=== PATIENT | male | born 1945 | race Caucasian/White ===

== ENCOUNTER 2023-02-08 21:08 | Emergency (ER) | payer OTHER ==
[~2023-02-08] VITALS: Ht 175.3 cm; Wt 108.9 kg
[2023-02-08 22:01] LABS: Hematocrit 38.7 % (37.0-53.0); Hemoglobin 12.4 g/dL (13.5-17.5); Mean Corpuscular HGB 31.6 pg (26.0-34.0); Mean Corpuscular Volume 99 fL (80-100); Mean Platelet Volume 10.6 fL (9.1-12.4); Platelet Count 143 K/mm3 (150-400); RDW Coefficient Variation 13.7 % (11.7-14.2); RDW Standard Deviation 50.1 fL (35.1-46.3); Red Blood Cell Count 3.92 M/mm3 (4.30-5.90); White Blood Cell Count 7.99 K/mm3 (4.00-11.30)
[2023-02-08 22:14] LABS: Source, Urine Voided
[2023-02-08 22:23] LABS: Albumin, Blood 3.5 g/dL (3.4-5.0); Bilirubin, Total 0.2 mg/dL (0.1-1.0); Bun/Creatinine Ratio 26.9 (12.0-20.0); Creatinine, Blood 1.04 mg/dL (0.60-1.20); Globulin, Blood 3.4 g/dL (2.2-4.0); Total Protein, Blood 6.9 g/dL (6.4-8.2)
[2023-02-08 22:27] LABS: BASOPHILS ABSOLUTE MAN 0.15 K/mm3 (0.00-0.23); BASOPHILS PERCENT MAN 2 % (0-2); EOSINOPHILS PERCENT MAN 0 % (0-6); LYMPHOCYTES ABSOLUTE MAN 1.19 K/mm3 (0.84-5.20); LYMPHOCYTES PERCENT MAN 15 % (21-46); METAMYELOCYTE ABSOLUTE MAN 0.15 K/mm3 (0.00-0.00); METAMYELOCYTE PERCENT MAN 2 % (0-0); MONOCYTES ABSOLUTE MAN 1.43 K/mm3 (0.16-1.47); MONOCYTES PERCENT MAN 18 % (4-13); MYELOCYTE ABSOLUTE MAN 0.23 K/mm3 (0.00-0.00); MYELOCYTE PERCENT MAN 3 % (0-0); NEUTROPHILS ABSOLUTE MAN 4.79 K/mm3 (1.96-9.15); SEG NEUTROPHILS PERCENT MAN 60 % (41-73); TOTAL CELLS COUNTED 100
[2023-02-08 22:31] LABS: Bilirubin, Urine Neg (Neg); Blood, Urine Neg (Neg); Glucose Qualitative, Urine Neg (Neg); Ketones, Urine Neg (Neg); Leukocyte Esterase, Urine Neg (Neg); Nitrite, Urine Neg (Neg); Protein, Urine Neg (Neg); Urobilinogen, Urine NORM (Normal)
[2023-02-08 23:05] LABS: Appearance, Urine Clear (Clear); Color, Urine Pale Yellow (P-Yellow)
[2023-02-08 23:44] VITALS: BP 117/86
== END 2023-02-09 00:42 | disposition home or self-care (01) ==
LOC: ER 21:08
PROVIDERS: Student in an Organized Health Care Education/Training Program
DX: M62.81 Muscle weakness (generalized) (principal)
CPT/HCPCS: 80053; 81003; 85025; 93005; 93010; 96360; 99284-25; J7030

== ENCOUNTER 2023-02-14 06:30 | Emergency (ER) | payer OTHER ==
[~2023-02-14] VITALS: Ht 175.3 cm; Wt 108.9 kg
[2023-02-14 07:03] LABS: Hematocrit 43.4 % (37.0-53.0); Hemoglobin 13.8 g/dL (13.5-17.5); Mean Corpuscular HGB 31.6 pg (26.0-34.0); Mean Corpuscular HGB Conc 31.8 g/dL (31.5-36.5); Mean Corpuscular Volume 99 fL (80-100); Mean Platelet Volume 10.7 fL (9.1-12.4); Platelet Count 135 K/mm3 (150-400); RDW Coefficient Variation 13.5 % (11.7-14.2); RDW Standard Deviation 49.8 fL (35.1-46.3); Red Blood Cell Count 4.37 M/mm3 (4.30-5.90); White Blood Cell Count 10.43 K/mm3 (4.00-11.30)
[2023-02-14 07:25] LABS: Albumin, Blood 3.8 g/dL (3.4-5.0); Albumin/Globulin Ratio 1.1 (0.8-1.8); Bilirubin, Total 0.5 mg/dL (0.1-1.0); Bun/Creatinine Ratio 30.1 (12.0-20.0); Calcium, Blood 9.2 mg/dL (8.5-10.1); Creatinine, Blood 1.03 mg/dL (0.60-1.20); Globulin, Blood 3.5 g/dL (2.2-4.0); Magnesium, Blood 2.4 mg/dL (1.6-2.4); Potassium, Blood 4.2 mmol/L (3.5-5.5); Total Protein, Blood 7.3 g/dL (6.4-8.2)
[2023-02-14 07:28] LABS: BAND PERCENT MAN 5 % (0-8); BASOPHILS PERCENT MAN 0 % (0-2); EOSINOPHILS PERCENT MAN 2 % (0-6); LYMPHOCYTES ABSOLUTE MAN 2.29 K/mm3 (0.84-5.20); LYMPHOCYTES PERCENT MAN 22 % (21-46); METAMYELOCYTE PERCENT MAN 2 % (0-0); MONOCYTES ABSOLUTE MAN 1.35 K/mm3 (0.16-1.47); MONOCYTES PERCENT MAN 13 % (4-13); MYELOCYTE ABSOLUTE MAN 0.31 K/mm3 (0.00-0.00); MYELOCYTE PERCENT MAN 3 % (0-0); NEUTROPHILS ABSOLUTE MAN 6.04 K/mm3 (1.96-9.15); SEG NEUTROPHILS PERCENT MAN 53 % (41-73); TOTAL CELLS COUNTED 100
[2023-02-14 11:00] VITALS: BP 130/75
== END 2023-02-14 11:44 | disposition home or self-care (01) ==
LOC: ER 06:30
PROVIDERS: Emergency Medicine
DX: R19.7 Diarrhea, unspecified (principal); E86.0 Dehydration; J44.9 Chronic obstructive pulmonary disease, unspecified; I10 Essential (primary) hypertension
CPT/HCPCS: 80053; 83735; 85025; 96361; 96374; 99284-25; A9270; J2405; J7120

== ENCOUNTER 2023-02-21 04:10 | Emergency (ER) | payer OTHER ==
[~2023-02-21] VITALS: Ht 175.3 cm; Wt 108.9 kg
[2023-02-21] MEDS ORDERED: ALBU90OI INH (04:24)
[2023-02-21] MEDS ORDERED: ASMANEX INH (04:24)
[2023-02-21] MEDS ORDERED: DILT60 (04:25)
[2023-02-21] MEDS ORDERED: TAMS.4ER PO (04:25)
[2023-02-21] MEDS ORDERED: FURO20 PO (04:25)
[2023-02-21 07:12] VITALS: BP 138/70
== END 2023-02-21 09:02 | disposition home or self-care (01) ==
LOC: ER 04:10
DX: S86.911A Strain of unspecified muscle(s) and tendon(s) at lower leg level, right leg, initial encounter (principal); R60.0 Localized edema; I10 Essential (primary) hypertension; J44.9 Chronic obstructive pulmonary disease, unspecified; Z79.899 Other long term (current) drug therapy; W19.XXXA Unspecified fall, initial encounter
CPT/HCPCS: 73590; 93971

== ENCOUNTER 2023-03-09 08:54 | Emergency (ER) | payer OTHER ==
[~2023-03-09] VITALS: Ht 177.8 cm; Wt 108.9 kg
[~2023-03-09 08:54] MED LIST: ALBU90OI INH; ASMANEX INH; DILT60; FURO20 PO; TAMS.4ER PO
[2023-03-09 10:41] LABS: BASOPHILS ABSOLUTE AUTO 0.01 K/mm3 (0.00-0.23); BASOPHILS PERCENT AUTO 0 % (0-2); EOSINOPHILS ABSOLUTE AUTO 0.16 K/mm3 (0.00-0.68); EOSINOPHILS PERCENT AUTO 2 % (0-6); Hematocrit 38.7 % (37.0-53.0); Hemoglobin 12.5 g/dL (13.5-17.5); IMMATURE GRAN PERCENT AUTO 3 % (0-1); LYMPHOCYTES ABSOLUTE AUTO 2.28 K/mm3 (0.84-5.20); LYMPHOCYTES PERCENT AUTO 35 % (21-46); MONOCYTES PERCENT AUTO 38 % (4-13); Mean Corpuscular HGB 32.1 pg (26.0-34.0); Mean Corpuscular HGB Conc 32.3 g/dL (31.5-36.5); Mean Corpuscular Volume 100 fL (80-100); Mean Platelet Volume 11.3 fL (9.1-12.4); NEUTROPHILS ABSOLUTE AUTO 1.42 K/mm3 (1.96-9.15); NEUTROPHILS PERCENT AUTO 22 % (41-73); Platelet Count 122 K/mm3 (150-400); RDW Coefficient Variation 13.2 % (11.7-14.2); RDW Standard Deviation 47.6 fL (35.1-46.3); Red Blood Cell Count 3.89 M/mm3 (4.30-5.90); White Blood Cell Count 6.57 K/mm3 (4.00-11.30)
[2023-03-09 10:45] LABS: Albumin, Blood 3.3 g/dL (3.4-5.0); Bilirubin, Total 0.4 mg/dL (0.1-1.0); Bun/Creatinine Ratio 27.9 (12.0-20.0); Calcium, Blood 8.5 mg/dL (8.5-10.1); Creatinine, Blood 0.86 mg/dL (0.60-1.20); Globulin, Blood 3.4 g/dL (2.2-4.0); Potassium, Blood 4.4 mmol/L (3.5-5.5); Total Protein, Blood 6.7 g/dL (6.4-8.2)
[2023-03-09 12:30] VITALS: BP 113/93
== END 2023-03-09 12:44 | disposition home or self-care (01) ==
LOC: ER 08:54
PROVIDERS: Emergency Medicine
DX: R53.1 Weakness (principal); R53.81 Other malaise; Z79.899 Other long term (current) drug therapy
CPT/HCPCS: 71046; 80053; 85025; 99285-25

== ENCOUNTER 2023-08-23 20:18 | Inpatient (IN) | payer OTHER ==
[~2023-08-23] VITALS: Ht 175.3 cm; Wt 113.4 kg
[~2023-08-23 20:18] MED LIST changes: -ASMANEX INH; +ASMANEX220 M14 INH; -FURO20 PO; +FURO40 PO; +NAPR500ERA PO
[2023-08-23] MEDS ORDERED: ATOR40TA PO (20:32)
[2023-08-23] MEDS ORDERED: LOSA50 PO (20:32)
[2023-08-23] MEDS ORDERED: Aspir 8181 MG PO (20:32)
[2023-08-23] MEDS ORDERED: FAMO20 PO (20:32)
[2023-08-23 20:48] LABS: Base Excess Venous -2.2 mmol/L; Bicarbonate Venous 22.1 mmol/L (24.0-30.0); PCO2 Venous 36.4 mmHg (38-42)
[2023-08-23 21:00] LABS: Hematocrit 41.5 % (37.0-53.0); Hemoglobin 13.5 g/dL (13.5-17.5); Mean Corpuscular HGB 31.6 pg (26.0-34.0); Mean Corpuscular HGB Conc 32.5 g/dL (31.5-36.5); Mean Corpuscular Volume 97 fL (80-100); Mean Platelet Volume 10.6 fL (9.1-12.4); Platelet Count 149 K/mm3 (150-400); RDW Coefficient Variation 13.4 % (11.7-14.2); RDW Standard Deviation 47.6 fL (35.1-46.3); Red Blood Cell Count 4.27 M/mm3 (4.30-5.90); White Blood Cell Count 16.93 K/mm3 (4.00-11.30)
[2023-08-23 21:19] LABS: Albumin, Blood 3.7 g/dL (3.4-5.0); Albumin/Globulin Ratio 1.1 (0.8-1.8); Bilirubin, Total 0.4 mg/dL (0.1-1.0); Bun/Creatinine Ratio 22.1 (12.0-20.0); Calcium, Blood 9.7 mg/dL (8.5-10.1); Creatinine, Blood 1.04 mg/dL (0.60-1.20); Globulin, Blood 3.5 g/dL (2.2-4.0); Potassium, Blood 4.1 mmol/L (3.5-5.5); Total Protein, Blood 7.2 g/dL (6.4-8.2)
[2023-08-23 21:25] LABS: BASOPHILS PERCENT MAN 0 % (0-2); EOSINOPHILS PERCENT MAN 0 % (0-6); LYMPHOCYTES ABSOLUTE MAN 1.52 K/mm3 (0.84-5.20); LYMPHOCYTES PERCENT MAN 9 % (21-46); MONOCYTES PERCENT MAN 26 % (4-13); SEG NEUTROPHILS PERCENT MAN 65 % (41-73); TOTAL CELLS COUNTED 100
[2023-08-23 21:29] LABS: Influenza A, PCR NEGATIVE (NEGATIVE); Influenza B, PCR NEGATIVE (NEGATIVE); Resp Syncytial Virus, PCR NEGATIVE (NEGATIVE); SARS-Cov-2 (COVID-19) PCR, MMC NEGATIVE (NEGATIVE)
[2023-08-23 21:59] LABS: Source, Urine Clean Catch
[2023-08-23 22:13] LABS: Appearance, Urine Clear (Clear); Bilirubin, Urine Neg (Neg); Blood, Urine 1+ (Neg); Color, Urine Yellow (P-Yellow); Glucose Qualitative, Urine Neg (Neg); Ketones, Urine Neg (Neg); Leukocyte Esterase, Urine Neg (Neg); Nitrite, Urine Neg (Neg); Protein, Urine 1+ (Neg); Urobilinogen, Urine NORM (Normal)
[2023-08-23 22:27] LABS: Bacteria Few /hpf; Mucus Light (0-Heavy); Red Blood Cells, Urine 0-2 /hpf (0-2); Squamous Epithelial Cells Mod /hpf (Few); White Blood Cells, Urine 0-2 /hpf (0-5)
[2023-08-23 23:49] LABS: Magnesium, Blood 2.2 mg/dL (1.6-2.4); Phosphorus, Blood 2.1 mg/dL (2.5-4.9); Thyroid Stimulating Hormone 0.576 uIU/mL (0.360-4.800)
[2023-08-24 05:46] VITALS: BP 103/77
[2023-08-24 06:19] LABS: BASOPHILS ABSOLUTE AUTO 0.02 K/mm3 (0.00-0.23); BASOPHILS PERCENT AUTO 0 % (0-2); EOSINOPHILS PERCENT AUTO 0 % (0-6); Hemoglobin 11.8 g/dL (13.5-17.5); IMMATURE GRAN ABSOLUTE AUTO 0.52 K/mm3 (0.00-0.10); IMMATURE GRAN PERCENT AUTO 3 % (0-1); LYMPHOCYTES ABSOLUTE AUTO 2.79 K/mm3 (0.84-5.20); LYMPHOCYTES PERCENT AUTO 16 % (21-46); MONOCYTES ABSOLUTE AUTO 4.91 K/mm3 (0.16-1.47); MONOCYTES PERCENT AUTO 28 % (4-13); Mean Corpuscular HGB 31.1 pg (26.0-34.0); Mean Corpuscular HGB Conc 31.9 g/dL (31.5-36.5); Mean Corpuscular Volume 97 fL (80-100); Mean Platelet Volume 10.5 fL (9.1-12.4); NEUTROPHILS ABSOLUTE AUTO 9.49 K/mm3 (1.96-9.15); NEUTROPHILS PERCENT AUTO 54 % (41-73); Platelet Count 143 K/mm3 (150-400); RDW Coefficient Variation 13.6 % (11.7-14.2); RDW Standard Deviation 48.6 fL (35.1-46.3); White Blood Cell Count 17.73 K/mm3 (4.00-11.30)
--- NOTE | 2023-08-24 06:21 | NUR ---
0540 PT ARRIVED TO ROOM FROM ER VIA GURNEY IN STABLE CONDITION. PT REPORTS ALL OVER PAIN THAT ACHES OF 3/10, STATES HE HAS ARTHRITIS AND USUALLY TAKES TYLENOL. WILL ADMINISTER TYLENOL AND EVAL FOR EFFECT. SOB THAT INCREASES WITH EXERTION, ON 3L NC AT 92%, THIS IS HIS BASELINE. 2-3+ PITTING EDEMA IN LE'S. EXP WHEEZE AND DIMINISHED THROUGHOUT IN LUNGS. NO SKIN ISSUES UPON SKIN CHECK OTHER THAN EDEMA. NO OTHER APPARENT SIGNS OF DISTRESS. CALL LIGHT IS IN REACH. BED ALARM IS ON.
--- NOTE | 2023-08-24 06:24 | NUR ---
PT IS AAO X 4, ON 3L AT 92%. SOB THAT INCREASES WITH EXERTION. 2-3+ PITTING EDEMA IN LE'S. ARTHRITIS PAIN, GOT TYLENOL. PT REPORTED NAUSEA BUT ALSO REPORTED HE WAS HUNGRY. GAVE PT OJ AND YOGURT.
--- NOTE | 2023-08-24 06:26 | NUR ---
PT LYING IN BED EATING YOGURT AND DRINKING OJ, WILL CONT. TO MONITOR FOR NAUSEA AND EVAL FOR PAIN. PT REQUESTED AND RECIEVED AN EXTRA BLANKET. NO OTHER APPARENT SIGNS OF DISTRESS. CALL LIGHT IS IN REACH. BED ALARM IS ON. NO OTHER CHANGES SINCE ARRIVAL TO ROOM.
[2023-08-24 06:45] LABS: Albumin, Blood 3.1 g/dL (3.4-5.0); Bilirubin, Total 0.5 mg/dL (0.1-1.0); Bun/Creatinine Ratio 20.4 (12.0-20.0); Creatinine, Blood 1.08 mg/dL (0.60-1.20); Globulin, Blood 3.2 g/dL (2.2-4.0); Potassium, Blood 4.2 mmol/L (3.5-5.5); Total Protein, Blood 6.3 g/dL (6.4-8.2)
[2023-08-24 07:23] VITALS: BP 128/58
[2023-08-24 16:00] VITALS: BP 126/79
--- NOTE | 2023-08-24 16:19 | NUR ---
PT IS A/OX4, PLEASANT AND COOPERATIVE. THE PT IS UP WITH 1 PERSON ASSIST. THE THE BSC. THE PT APPEARS TO BE BREATHING EASILY AT REST AND REPORTS THAT HE FEELS HE IS BREATHING BETTER SINCE ADMISSION. PT WAS MEDICATED FOR CHRONIC PAIN WITH TYLENOL X1 SO FAR THIS SHIFT. CLARY CONNORS ON. CALL LIGHT IN REACH. BED IN THE LOW POSITION
[2023-08-24 21:13] VITALS: BP 117/74
[2023-08-25] MEDS ORDERED: ACET500 PO (00:25)
[2023-08-25] MEDS ORDERED: ALEN70 PO (00:25)
[2023-08-25] MEDS ORDERED: Bisoprolol Fumar5 MG PO (00:28)
[2023-08-25] MEDS ORDERED: THERA-D2000 UNIT PO (00:29)
[2023-08-25] MEDS ORDERED: Calcium Carbon500 MG PO (00:29)
[2023-08-25] MEDS ORDERED: OMEP20ER PO (00:32)
[2023-08-25] MEDS ORDERED: ARTIFICIAL TEA1 EAC1 BOTHEYES (00:32)
[2023-08-25] MEDS ORDERED: STIOLTO RESPIMAT4 G1 INH (00:34)
[2023-08-25] MEDS ORDERED: PSYLLIUM PO (00:34)
[2023-08-25 03:13] VITALS: BP 105/60
[2023-08-25 05:25] LABS: Hematocrit 34.8 % (37.0-53.0); Hemoglobin 11.1 g/dL (13.5-17.5); Mean Corpuscular HGB 31.4 pg (26.0-34.0); Mean Corpuscular HGB Conc 31.9 g/dL (31.5-36.5); Mean Corpuscular Volume 99 fL (80-100); Mean Platelet Volume 10.9 fL (9.1-12.4); Platelet Count 122 K/mm3 (150-400); RDW Coefficient Variation 13.7 % (11.7-14.2); RDW Standard Deviation 49.1 fL (35.1-46.3); Red Blood Cell Count 3.53 M/mm3 (4.30-5.90); White Blood Cell Count 7.88 K/mm3 (4.00-11.30)
[2023-08-25 05:58] LABS: Anion Gap 7 mmol/L (6-16); Blood Urea Nitrogen 18 mg/dL (8-24); Bun/Creatinine Ratio 20.1 (12.0-20.0); CO2, Blood 24 mmol/L (21-32); Calcium, Blood 8.4 mg/dL (8.5-10.1); Chloride, Blood 112 mmol/L (98-108); Glomerular Filtration Rate 86 (60-); Glucose, Blood 102 mg/dL (70-99); Phosphorus, Blood 3.6 mg/dL (2.5-4.9); Potassium, Blood 3.9 mmol/L (3.5-5.5); Sodium, Blood 143 mmol/L (136-145)
--- NOTE | 2023-08-25 06:28 | NUR ---
SHIFT SUMMARY NO ACUTE CHANGES TO REPORT OVERNIGHT, PT HAS RESTED T/O THE NIGHT. PT REPORTS PAIN IN JOINTS RELATED TO HIS ARTHRITIS, MEDICATED PER EMAR. VITALS STABLE, PT MAINTAINING O2 SATS WNL ON 3L 02. VITALS ARE STABLE. PLAN OF CARE REMAINS UNCHANGED. BED IN LOWEST POSITION, CALL LIGHT WITHIN REACH.
[2023-08-25 08:07] VITALS: BP 99/64
[2023-08-25 16:58] VITALS: BP 117/76
--- NOTE | 2023-08-25 17:55 | NUR ---
SHIFT SUMMARY: JOSEPH IS A&OX4. VSS, NO ACUTE EVENTS THIS SHIFT. HE IS TOLERATING PO INTAKE WELL, MAINTAINING SATS ON 3O VIA NC (CONSISTENT WITH HIS BASELINE OXYGEN USAGE), AND IS ABLE TO MAKE HIS NEEDS KNOWN. HE IS A ONE TO TWO PERSON ASSIST TO THE BEDSIDE CHAIR AND BEDSIDE COMMODE. IVs TO BILATERAL ARMS PATENT. PT REPORTS URINATING WITHOUT DIFFICULTY, HAS BEEN USING EITHER THE URINAL OR THE BEDSIDE COMMODE. HE REPORTS ADEQUATE PAIN CONTROL WITH MEDICATIONS PER NOV. HE IS LYING IN BED WITH THE CALL LIGHT IN REACH. WCTM UNTIL REPORT IS GIVEN TO GLUE MACHINE OPERATOR RN.
[2023-08-25 19:32] VITALS: BP 119/71
[2023-08-26 03:18] VITALS: BP 122/78
[2023-08-26 06:21] LABS: Albumin, Blood 3.3 g/dL (3.4-5.0); Anion Gap 4 mmol/L (6-16); Blood Urea Nitrogen 17 mg/dL (8-24); Bun/Creatinine Ratio 20.9 (12.0-20.0); CO2, Blood 26 mmol/L (21-32); Calcium, Blood 8.8 mg/dL (8.5-10.1); Chloride, Blood 112 mmol/L (98-108); Creatinine, Blood 0.81 mg/dL (0.60-1.20); Glomerular Filtration Rate 89 (60-); Glucose, Blood 106 mg/dL (70-99); Phosphorus, Blood 3.1 mg/dL (2.5-4.9); Potassium, Blood 4.1 mmol/L (3.5-5.5); Sodium, Blood 142 mmol/L (136-145)
--- NOTE | 2023-08-26 07:10 | NUR ---
Shift Summary Pt remains on 3L NC, VSS. He states he is not feeling well this AM after not sleeping well last night. Pt did c/o of leg pain, we raised his legs on pillows and medicated per EMAR. Pt wasn't sure if the pillows helped or not and had them removed. PT AOx4, on bedrest, voiding in urinal.
[2023-08-26 07:37] VITALS: BP 142/92
[2023-08-26 15:29] VITALS: BP 102/68
--- NOTE | 2023-08-26 18:51 | NUR ---
SHIFT SUMMARY: JOSEPH IS A&OX4. VSS, NO ACUTE EVENTS THIS SHIFT. HE IS TOLERATING PO INTAKE WELL, STATES THAT THE LIDOCAINE PATCHES ON HIS KNEES DID NOT IMPROVE HIS SYMPTOMS AND REQUESTED THAT THEY BE REMOVED. IVs TO BILAERAL FOREARMS PATENT. HE IS URINATING WITHOUT DIFFICULTY USING THE URINALS. CLARY HOSE IN PLACE. MAINTAINING SATS ON 3L VIA NC. HE IS LYING IN BED WITH THE CALL LIGHT IN REACH. WCTM UNTIL REPORT IS GIVEN TO COMPUTER INSTRUCTOR RN.
[2023-08-26 19:45] VITALS: BP 111/62
[2023-08-27 03:10] VITALS: BP 104/63
[2023-08-27 05:41] LABS: Albumin, Blood 3.2 g/dL (3.4-5.0); Anion Gap 5 mmol/L (6-16); Blood Urea Nitrogen 22 mg/dL (8-24); Bun/Creatinine Ratio 25.2 (12.0-20.0); CO2, Blood 26 mmol/L (21-32); Calcium, Blood 8.6 mg/dL (8.5-10.1); Chloride, Blood 109 mmol/L (98-108); Creatinine, Blood 0.87 mg/dL (0.60-1.20); Glomerular Filtration Rate 87 (60-); Glucose, Blood 99 mg/dL (70-99); Phosphorus, Blood 3.8 mg/dL (2.5-4.9); Potassium, Blood 4.5 mmol/L (3.5-5.5); Sodium, Blood 140 mmol/L (136-145)
--- NOTE | 2023-08-27 06:47 | NUR ---
Shift Summary Pt having good PO intake but has not had a bowel movement since 08/24. Given bowel care last night including miralax. Pt states he is passing gas and feeling rumbling but unable to have a BM. Pt having small frequent voids in the urinal. I did a bladder scan 30 minutes after one void and there was 143 mL. Lower extremities still painful, medicated per emar and pt slept well t/o most of the night. Pt AOx4, currently on bedrest.
[2023-08-27 07:30] VITALS: BP 104/62
[2023-08-27] MEDS ORDERED: ASPI81CH PO (11:55)
[2023-08-27] MEDS ORDERED: AZIT500 PO (11:56)
[2023-08-27] MEDS ORDERED: GUAI600T33 PO (11:58)
[2023-08-27] MEDS ORDERED: LIDO700A20 TOP (12:00)
[2023-08-27] MEDS ORDERED: TRAM50 PO (12:01)
[2023-08-27] MEDS ORDERED: MIRALAX17 GM PO (12:01)
[2023-08-27] MEDS ORDERED: MELATONIN5 M1 PO (12:01)
[2023-08-27] MEDS ORDERED: CEFU500T30 PO (12:02)
[2023-08-27] MEDS ORDERED: VISBIOME 112.51 EACH PO (12:02)
--- NOTE | 2023-08-27 13:51 | NUR ---
PT DISCHARGED THE PT VERBALIZED UNDERSTANDING OF THE DC INSTRUCTIONS. THE PTS ANTI BIOTIC PRESCRIPTIONS WERE FAXED TO [facility] HE REQUESTED. [facility] PT WAS TRANSFERED BY WHEELCHAIR ACCOMPANIED BY HIS DAUGHTER. PT WAS OFFERED OXYGEN TO WEAR TO THE CAR, HE REFUSED.
== END 2023-08-27 13:05 | disposition home health service (06) | DRG 871 ==
LOC: ER 20:18 → MEDS 20:19 → ENPENDDIS 08-27 11:59 → MEDS 08-27 13:05
PROVIDERS: Emergency Medicine; Family Medicine; Internal Medicine; ADMIT Student in an Organized Health Care Education/Training Program
DX: A41.9 Sepsis, unspecified organism (principal); I50.33 Acute on chronic diastolic (congestive) heart failure; J18.9 Pneumonia, unspecified organism; J96.11 Chronic respiratory failure with hypoxia; Z66 Do not resuscitate; Z11.52 Encounter for screening for COVID-19; E88.09 Other disorders of plasma-protein metabolism, not elsewhere classified; J43.9 Emphysema, unspecified; K59.00 Constipation, unspecified; M17.0 Bilateral primary osteoarthritis of knee; E83.39 Other disorders of phosphorus metabolism; D69.6 Thrombocytopenia, unspecified; N40.0 Benign prostatic hyperplasia without lower urinary tract symptoms; I11.0 Hypertensive heart disease with heart failure; R16.1 Splenomegaly, not elsewhere classified; N28.1 Cyst of kidney, acquired; K44.9 Diaphragmatic hernia without obstruction or gangrene; R91.1 Solitary pulmonary nodule; Z99.81 Dependence on supplemental oxygen; Z87.891 Personal history of nicotine dependence; Z79.82 Long term (current) use of aspirin
CPT/HCPCS: 0241U; 36415; 71045; 71260; 80053; 80069; 81001; 82803; 83605; 83735; 83880; 84100; 84145; 84443; 84484; 85025; 85027; 85379; 87040; 93005; 93010; 93306; 94640; 94664; 94760; 96365; 96367; 96375; 97110; 97162; 97165; 97530; 97535; 99285-25; A9270; G0378; J0456; J0696; J1650; J1940; J7050; P9047; Q9967

== ENCOUNTER 2024-06-18 10:38 | Emergency (ER) | payer OTHER ==
[~2024-06-18] VITALS: Ht 160 cm; Wt 113.4 kg
[~2024-06-18 10:38] MED LIST changes: +ACET500 PO; +ALEN70 PO; +ARTIFICIAL TEA1 EAC1 BOTHEYES; +ASPI81CH PO; +ATOR40TA PO; +AZIT500 PO; +Aspir 8181 MG PO; +Bisoprolol Fumar5 MG PO; +CEFU500T30 PO; +Calcium Carbon500 MG PO; +FAMO20 PO; +GUAI600T33 PO; +LIDO700A20 TOP; +LOSA50 PO; +MELATONIN5 M1 PO; +MIRALAX17 GM PO; +OMEP20ER PO; +PSYLLIUM PO; +STIOLTO RESPIMAT4 G1 INH; +THERA-D2000 UNIT PO; +TRAM50 PO; +VISBIOME 112.51 EACH PO
[2024-06-18] MEDS ORDERED: Ipratropium/Albuterol SulF 2.5-0.5MG/3 ML Amp INH ONE (11:15)
[2024-06-18] MEDS ORDERED: Metoclopramide HCl 5MG / ML 2ML Vial IV ONE (11:15)
[2024-06-18] MEDS ORDERED: NS 1,000 ML IV SCH (11:15)
[2024-06-18 11:21] LABS: BASOPHILS ABSOLUTE AUTO 0.02 K/mm3 (0.00-0.23); BASOPHILS PERCENT AUTO 0 % (0-2); EOSINOPHILS ABSOLUTE AUTO 0.06 K/mm3 (0.00-0.68); EOSINOPHILS PERCENT AUTO 1 % (0-6); Hematocrit 36.1 % (37.0-53.0); Hemoglobin 11.6 g/dL (13.5-17.5); IMMATURE GRAN ABSOLUTE AUTO 0.33 K/mm3 (0.00-0.10); IMMATURE GRAN PERCENT AUTO 4 % (0-1); LYMPHOCYTES ABSOLUTE AUTO 3.04 K/mm3 (0.84-5.20); LYMPHOCYTES PERCENT AUTO 37 % (21-46); MONOCYTES ABSOLUTE AUTO 2.48 K/mm3 (0.16-1.47); MONOCYTES PERCENT AUTO 30 % (4-13); Mean Corpuscular HGB Conc 32.1 g/dL (31.5-36.5); Mean Corpuscular Volume 100 fL (80-100); Mean Platelet Volume 10.7 fL (9.1-12.4); NEUTROPHILS ABSOLUTE AUTO 2.24 K/mm3 (1.96-9.15); NEUTROPHILS PERCENT AUTO 28 % (41-73); Platelet Count 93 K/mm3 (150-400); RDW Coefficient Variation 13.1 % (11.7-14.2); RDW Standard Deviation 47.5 fL (35.1-46.3); Red Blood Cell Count 3.62 M/mm3 (4.30-5.90); White Blood Cell Count 8.17 K/mm3 (4.00-11.30)
[2024-06-18 11:30] LABS: Alanine Aminotransfer (ALT/SGP 17 U/L (12-78); Albumin, Blood 3.8 g/dL (3.4-5.0); Albumin/Globulin Ratio 1.3 (0.8-1.8); Alk Phos 73 U/L (50-136); Anion Gap 9 mmol/L (3-11); Aspartate Aminotrans (AST/SGOT 19 U/L (12-37); Bilirubin, Direct <0.1 mg/dL (0.0-0.3); Bilirubin, Indirect Unable to Calculate mg/dL (0.1-0.7); Bilirubin, Total 0.5 mg/dL (0.1-1.0); Blood Urea Nitrogen 26 mg/dL (8-24); Bun/Creatinine Ratio 30.7 (12.0-20.0); CO2, Blood 23 mmol/L (21-32); Calcium, Blood 8.9 mg/dL (8.5-10.1); Chloride, Blood 112 mmol/L (98-108); Creatinine, Blood 0.85 mg/dL (0.60-1.20); Glomerular Filtration Rate 88 (60-); Glucose, Blood 94 mg/dL (70-99); Potassium, Blood 4.9 mmol/L (3.5-5.5); Sodium, Blood 139 mmol/L (136-145); Total Protein, Blood 6.8 g/dL (6.4-8.2)
[2024-06-18 11:51] LABS: Influenza A, PCR NEGATIVE (NEGATIVE); Influenza B, PCR NEGATIVE (NEGATIVE); Resp Syncytial Virus, PCR NEGATIVE (NEGATIVE); SARS-Cov-2 (COVID-19) PCR, MMC NEGATIVE (NEGATIVE)
[2024-06-18] MEDS ORDERED: Albuterol 2.5 MG/3 ML VIAL INH SCH (12:20)
[2024-06-18] MEDS ORDERED: MethylPREDNISolone Sod Succ 125 MG Vial IV ONE (12:20)
[2024-06-18 12:26] LABS: Source, Urine Clean Catch
[2024-06-18 12:32] LABS: Appearance, Urine Clear (Clear); Bilirubin, Urine Neg (Neg); Blood, Urine Neg (Neg); Color, Urine Yellow (P-Yellow); Glucose Qualitative, Urine Neg (Neg); Ketones, Urine Neg (Neg); Leukocyte Esterase, Urine Neg (Neg); Nitrite, Urine Neg (Neg); Protein, Urine 1+ (Neg); Urobilinogen, Urine NORM (Normal)
[2024-06-18] MEDS ORDERED: Acetaminophen 500 MG Tab PO ONE (13:00)
[2024-06-18] MEDS ORDERED: ALBU90OI INH (13:09)
[2024-06-18] MEDS ORDERED: ONDA4ODT MM (13:09)
[2024-06-18] MEDS ORDERED: PRED20 PO (13:09)
[2024-06-18] MEDS ORDERED: Ondansetron HCl 2 MG / ML 2ML Vial IV ONE (13:35)
[2024-06-18 14:30] VITALS: BP 121/74
== END 2024-06-18 15:07 | disposition home or self-care (01) ==
LOC: ER 10:38
PROVIDERS: Student in an Organized Health Care Education/Training Program
DX: B34.9 Viral infection, unspecified (principal); J45.901 Unspecified asthma with (acute) exacerbation; J44.9 Chronic obstructive pulmonary disease, unspecified; I10 Essential (primary) hypertension; N40.0 Benign prostatic hyperplasia without lower urinary tract symptoms; Z79.899 Other long term (current) drug therapy; Z79.82 Long term (current) use of aspirin; Z11.52 Encounter for screening for COVID-19
CPT/HCPCS: 0241U; 74177; 80048; 80076; 83690; 85025; 93005; 93010; 94640; 94644; 94664; 96361; 96374-59; 96375; 99285-25; A9270; J2405; J2765; J2919; J7030; Q9967

== ENCOUNTER 2024-08-25 07:53 | Emergency (ER) | payer OTHER ==
[~2024-08-25] VITALS: Ht 175.3 cm; Wt 117.9 kg
[~2024-08-25 07:53] MED LIST changes: +ONDA4ODT MM; +PRED20 PO
[2024-08-25] MEDS ORDERED: NS 1,000 ML IV SCH (08:10)
[2024-08-25] MEDS ORDERED: Diltiazem HCl 5 MG / ML 5ML Vial IV ONE (08:10)
[2024-08-25 08:17] LABS: BASOPHILS ABSOLUTE AUTO 0.02 K/mm3 (0.00-0.23); BASOPHILS PERCENT AUTO 0 % (0-2); EOSINOPHILS ABSOLUTE AUTO 0.06 K/mm3 (0.00-0.68); EOSINOPHILS PERCENT AUTO 1 % (0-6); Hematocrit 36.1 % (37.0-53.0); Hemoglobin 11.6 g/dL (13.5-17.5); IMMATURE GRAN ABSOLUTE AUTO 0.37 K/mm3 (0.00-0.10); IMMATURE GRAN PERCENT AUTO 5 % (0-1); LYMPHOCYTES ABSOLUTE AUTO 2.85 K/mm3 (0.84-5.20); LYMPHOCYTES PERCENT AUTO 37 % (21-46); MONOCYTES ABSOLUTE AUTO 2.69 K/mm3 (0.16-1.47); MONOCYTES PERCENT AUTO 35 % (4-13); Mean Corpuscular HGB 32.5 pg (26.0-34.0); Mean Corpuscular HGB Conc 32.1 g/dL (31.5-36.5); Mean Corpuscular Volume 101 fL (80-100); Mean Platelet Volume 10.3 fL (9.1-12.4); NEUTROPHILS ABSOLUTE AUTO 1.75 K/mm3 (1.96-9.15); NEUTROPHILS PERCENT AUTO 23 % (41-73); Platelet Count 103 K/mm3 (150-400); RDW Standard Deviation 48.7 fL (35.1-46.3); Red Blood Cell Count 3.57 M/mm3 (4.30-5.90); White Blood Cell Count 7.74 K/mm3 (4.00-11.30)
[2024-08-25 08:27] LABS: Albumin, Blood 3.3 g/dL (3.4-5.0); Albumin/Globulin Ratio 1.2 (0.8-1.8); Bilirubin, Total 0.5 mg/dL (0.1-1.0); Bun/Creatinine Ratio 27.2 (12.0-20.0); Calcium, Blood 8.5 mg/dL (8.5-10.1); Creatinine, Blood 0.99 mg/dL (0.60-1.20); Globulin, Blood 2.7 g/dL (2.2-4.0); Potassium, Blood 4.7 mmol/L (3.5-5.5)
[2024-08-25] MEDS ORDERED: Apixaban 5 MG Tab PO ONE (11:10)
[2024-08-25] MEDS ORDERED: Metoprolol Succinate 25 MG TABCR PO ONE (11:15)
[2024-08-25 11:24] VITALS: BP 131/92
[2024-08-25] MEDS ORDERED: ELIQUIS5 M2 PO (11:25)
[2024-08-25] MEDS ORDERED: Toprol Xl25 MG PO (11:25)
== END 2024-08-25 11:53 | disposition home or self-care (01) ==
LOC: ER 07:53
PROVIDERS: Emergency Medicine
DX: I48.91 Unspecified atrial fibrillation (principal); Z79.82 Long term (current) use of aspirin; Z79.52 Long term (current) use of systemic steroids; I10 Essential (primary) hypertension; E78.5 Hyperlipidemia, unspecified; J44.9 Chronic obstructive pulmonary disease, unspecified; I50.30 Unspecified diastolic (congestive) heart failure
CPT/HCPCS: 71045; 80053; 83880; 84484; 85025; 93005; 93010; 96361; 96374; 99285-25; A9270; J7030

== ENCOUNTER 2025-01-26 08:11 | Emergency (ER) | payer OTHER ==
[~2025-01-26] VITALS: Ht 175.3 cm; Wt 117.9 kg
[~2025-01-26 08:11] MED LIST changes: +ELIQUIS5 M2 PO; +Toprol Xl25 MG PO
[2025-01-26 09:27] LABS: BASOPHILS ABSOLUTE AUTO 0.01 K/mm3 (0.00-0.23); BASOPHILS PERCENT AUTO 0 % (0-2); EOSINOPHILS ABSOLUTE AUTO 0.04 K/mm3 (0.00-0.68); EOSINOPHILS PERCENT AUTO 0 % (0-6); Hematocrit 34.9 % (37.0-53.0); Hemoglobin 11.2 g/dL (13.5-17.5); IMMATURE GRAN ABSOLUTE AUTO 0.17 K/mm3 (0.00-0.10); IMMATURE GRAN PERCENT AUTO 2 % (0-1); LYMPHOCYTES ABSOLUTE AUTO 2.55 K/mm3 (0.84-5.20); LYMPHOCYTES PERCENT AUTO 27 % (21-46); MONOCYTES ABSOLUTE AUTO 3.45 K/mm3 (0.16-1.47); MONOCYTES PERCENT AUTO 36 % (4-13); Mean Corpuscular HGB 31.8 pg (26.0-34.0); Mean Corpuscular HGB Conc 32.1 g/dL (31.5-36.5); Mean Corpuscular Volume 99 fL (80-100); Mean Platelet Volume 10.8 fL (9.1-12.4); NEUTROPHILS ABSOLUTE AUTO 3.38 K/mm3 (1.96-9.15); NEUTROPHILS PERCENT AUTO 35 % (41-73); Platelet Count 89 K/mm3 (150-400); RDW Coefficient Variation 13.2 % (11.7-14.2); RDW Standard Deviation 47.2 fL (35.1-46.3); Red Blood Cell Count 3.52 M/mm3 (4.30-5.90)
[2025-01-26 09:44] LABS: Albumin, Blood 3.3 g/dL (3.4-5.0); Bilirubin, Total 0.7 mg/dL (0.1-1.0); Bun/Creatinine Ratio 20.4 (12.0-20.0); Calcium, Blood 8.9 mg/dL (8.5-10.1); Creatinine, Blood 1.03 mg/dL (0.60-1.20); Globulin, Blood 3.2 g/dL (2.2-4.0); Potassium, Blood 4.3 mmol/L (3.5-5.5); Total Protein, Blood 6.5 g/dL (6.4-8.2)
[2025-01-26 09:58] LABS: Influenza A, PCR NEGATIVE (NEGATIVE); Influenza B, PCR NEGATIVE (NEGATIVE); Resp Syncytial Virus, PCR NEGATIVE (NEGATIVE); SARS-Cov-2 (COVID-19) PCR, MMC NEGATIVE (NEGATIVE)
[2025-01-26 10:45] VITALS: BP 92/81
== END 2025-01-26 11:07 | disposition home or self-care (01) ==
LOC: ER 08:11
PROVIDERS: Emergency Medicine
DX: J44.1 Chronic obstructive pulmonary disease with (acute) exacerbation (principal); I10 Essential (primary) hypertension; Z79.899 Other long term (current) drug therapy; Z87.891 Personal history of nicotine dependence
CPT/HCPCS: 0241U; 71045; 80053; 85025; 93005; 93010; 99285-25

== ENCOUNTER 2025-01-26 15:57 | Inpatient (IN) | payer OTHER ==
[~2025-01-26] VITALS: Ht 172.7 cm; Wt 118.1 kg
[2025-01-26] MEDS ORDERED: Albuterol 2.5 MG/3 ML VIAL INH SCH (16:55)
[2025-01-26] MEDS ORDERED: Acetaminophen 500 MG Tab PO ONE (17:20)
[2025-01-26] MEDS ORDERED: CefTRIAXone Sodium 1,000 MG in NS 100 ML IV ONE (17:45)
[2025-01-26] MEDS ORDERED: MethylPREDNISolone Sod Succ 125 MG Vial IV ONE (17:50)
[2025-01-26] MEDS ORDERED: Ipratropium/Albuterol SulF 2.5-0.5MG/3 ML Amp INH SCH (18:15)
[2025-01-26] MEDS ORDERED: Ondansetron HCl 2 MG / ML 2ML Vial IV PRN (18:15)
[2025-01-26] MEDS ORDERED: Acetaminophen 325 MG TABLET PO PRN (18:20)
[2025-01-26] MEDS ORDERED: Polyethylene Glycol 3350 17 gm PO PRN (18:25)
[2025-01-26 20:33] VITALS: BP 124/76
[2025-01-26] MEDS ORDERED: Docusate Sodium 100 MG Cap PO SCH (21:00)
[2025-01-26] MEDS ORDERED: GuaiFENesin 600 MG TabCR PO SCH (21:00)
[2025-01-26] MEDS ORDERED: Apixaban 5 MG Tab PO SCH (21:00)
--- NOTE | 2025-01-26 21:01 | NUR ---
ADMIT NOTE 79 YR OLD MALE ADMITTED TO FLOOR FROM THE ED WITH DX OF COPD EXACERBATION. ALERT AND ORIENTED X 4. LUNG SOUNDS INSPIRATION WHEEZE OF LEFT UPPER FRONTAL LOBE AND DIMINISHED OTHERWISE PER AUSCULTATION. COOEPRATIVE. MED TELE - ST IN THE 70'S WITH BBB. ORIENTED TO USE OF CALL LIGHT. CALL LIGHT IN REACH, RAILS UP X 2 AND BED IN LOPOSITIONFOR SAFETY.
[2025-01-27 02:48] VITALS: BP 97/55
--- NOTE | 2025-01-27 03:40 | NUR ---
MAINTAINABILITY ENGINEER SUMMARY VSS. ADMITTED TO FLOOR EARLIER IN THE SHIFT WITH DX OF COPD EXACERBATION. ALERT AND ORIENTED. LUNG SOUNDS EXPIRATORY WHEEZE WAS NOTED AND DIMINISHED PER AUSCULTATION. O2 AT 3-4L/MIN PER [facility] MED TELE SR WITH BBB. 2 PERSON ASSIST DUE TO SEVERE WEAKNESS. WAS INCONT OF URINE, APPARENTLY UNABLE TO RECOGNIZE NEED TO USE URINAL. MALE PUREWICK APPLIED. HAS BEEN RESTING WITH FEW INTERRUPTIONS SINCE. HOB ELEVATED FOR RESP COMFORT. SEVERE EDEMA BLE. CALL LIGHT IN REACH, RAILS UP X 2 AND BE IN LOW POSITION FOR SAFETY. WILL CONT TO MONITOR.
[2025-01-27 05:27] LABS: BASOPHILS ABSOLUTE AUTO 0.02 K/mm3 (0.00-0.23); BASOPHILS PERCENT AUTO 0 % (0-2); EOSINOPHILS ABSOLUTE AUTO 0.01 K/mm3 (0.00-0.68); EOSINOPHILS PERCENT AUTO 0 % (0-6); Hematocrit 33.1 % (37.0-53.0); Hemoglobin 10.7 g/dL (13.5-17.5); IMMATURE GRAN ABSOLUTE AUTO 0.31 K/mm3 (0.00-0.10); IMMATURE GRAN PERCENT AUTO 5 % (0-1); LYMPHOCYTES ABSOLUTE AUTO 2.28 K/mm3 (0.84-5.20); LYMPHOCYTES PERCENT AUTO 38 % (21-46); MONOCYTES ABSOLUTE AUTO 0.51 K/mm3 (0.16-1.47); MONOCYTES PERCENT AUTO 8 % (4-13); Mean Corpuscular HGB 31.6 pg (26.0-34.0); Mean Corpuscular HGB Conc 32.3 g/dL (31.5-36.5); Mean Corpuscular Volume 98 fL (80-100); Mean Platelet Volume 11.1 fL (9.1-12.4); NEUTROPHILS ABSOLUTE AUTO 2.94 K/mm3 (1.96-9.15); NEUTROPHILS PERCENT AUTO 48 % (41-73); Platelet Count 92 K/mm3 (150-400); RDW Coefficient Variation 13.1 % (11.7-14.2); RDW Standard Deviation 46.6 fL (35.1-46.3); Red Blood Cell Count 3.39 M/mm3 (4.30-5.90); White Blood Cell Count 6.07 K/mm3 (4.00-11.30)
[2025-01-27] MEDS ORDERED: Omeprazole 20 MG CapCR PO SCH (06:00)
[2025-01-27 06:05] LABS: Albumin/Globulin Ratio 0.9 (0.8-1.8); Bilirubin, Total 0.6 mg/dL (0.1-1.0); Calcium, Blood 8.6 mg/dL (8.5-10.1); Creatinine, Blood 0.91 mg/dL (0.60-1.20); Globulin, Blood 3.3 g/dL (2.2-4.0); Magnesium, Blood 2.4 mg/dL (1.6-2.4); Potassium, Blood 4.3 mmol/L (3.5-5.5); Total Protein, Blood 6.3 g/dL (6.4-8.2)
[2025-01-27 07:38] VITALS: BP 130/66
[2025-01-27] MEDS ORDERED: Enoxaparin 40 MG/0.4 ML SYR SC SCH (09:00)
[2025-01-27] MEDS ORDERED: Metoprolol Succinate 25 MG TABCR PO SCH (09:00)
[2025-01-27] MEDS ORDERED: Losartan Potassium 50 MG Tab PO SCH (09:00)
[2025-01-27] MEDS ORDERED: Furosemide 40 MG Tab PO SCH (09:00)
[2025-01-27] MEDS ORDERED: Tamsulosin HCl 0.4 MG Cap PO SCH (09:00)
[2025-01-27] MEDS ORDERED: PredniSONE 20 MG Tab PO SCH (09:00)
[2025-01-27 10:03] LABS: Adenovirus Not Detected (NOT DETECT); Bordetella pertussis Not Detected (NOT DETECT); Chlamydophila pneumoniae Not Detected (NOT DETECT); Coronavirus 229E Not Detected (NOT DETECT); Coronavirus HKU1 Not Detected (NOT DETECT); Coronavirus NL63 Not Detected (NOT DETECT); Coronavirus OC43 Not Detected (NOT DETECT); Human Metapneumovirus Not Detected (NOT DETECT); Human Rhinovirus/Enterovirus Not Detected (NOT DETECT); Influenza A/2009-H1 Not Detected (NOT DETECT); Influenza A/H1 Not Detected (NOT DETECT); Influenza A/H3 Not Detected (NOT DETECT); Influenza B Not Detected (NOT DETECT); Mycoplasma pneumoniae Not Detected (NOT DETECT); Parainfluenza Virus 1 Not Detected (NOT DETECT); Parainfluenza Virus 2 Not Detected (NOT DETECT); Parainfluenza Virus 3 Not Detected (NOT DETECT); Parainfluenza Virus 4 Not Detected (NOT DETECT); Respiratory Syncytial Virus Not Detected (NOT DETECT); SARS-Cov-2 (COVID-19), BioFire Not Detected (NOT DETECT)
[2025-01-27 10:43] VITALS: BP 107/64
[2025-01-27 15:33] VITALS: BP 110/96
--- NOTE | 2025-01-27 18:24 | NUR ---
SHIFT SUMMARY PT AOX4, BR. LEWIS IN PLACE, DRAINING WELL. CALLS AND MAKES HIS NEEDS KNOWN. REPOSITIONED THROUGHOUT THE SHIFT. NO ACUTE COMPLAINTS. EVENTS PER TELE RELAYED TO THE PROVIDER. NO TELE EVENTS THIS AFTERNOON ONCE MEDICATED PER THE EMAR WITH HOME MEDICATION. CALL LIGHT WITHIN REACH, BED LOCKED AND IN THE LOWEST POSITION. WILL REPORT TO ONCOMING NURSE.
[2025-01-27 19:09] VITALS: BP 100/58
--- NOTE | 2025-01-27 23:52 | NUR ---
BREAK NURSE NOTE APPROX 2350 PT HAD 6 BEAT RUN OF VTACH. DR. ASH NOTIFIED. PT ASYMPTOMATIC.
[2025-01-28 00:33] VITALS: BP 146/131
--- NOTE | 2025-01-28 00:48 | NUR ---
HOGSHEAD WRECKER REPORTED INTERMITTENT HR IN THE HUNDREDS, CURRENT BP 146/131 AND HR 120. ASYMPTOMATIC. NOTIFIED AND ORDERED LOPRESSOR 2.5 MG IV X 1. WILL MONITOR
[2025-01-28] MEDS ORDERED: Metoprolol Tartrate 1 MG/ML 5 ML VIAL IV ONE (00:50)
[2025-01-28 01:04] VITALS: BP 110/63
--- NOTE | 2025-01-28 01:06 | NUR ---
BP 110/63 AND HR NOW 94. ASYMPTOMATIC. IV LOPRESSOR HELD AT THIS TIME. WILL MONITOR.
--- NOTE | 2025-01-28 03:09 | NUR ---
INTERMITTENT RUNS OF V-TACH THEN SHO CARDIA. EACH TIME PT CHECKED ON, VOICED HE FELT FIND AND WAS SMILING. APPEARED ASYMPTOMATIC. WILL CONTINUE TO MONITOR. CALL LIGHT IN REACH
[2025-01-28 03:56] VITALS: BP 96/64
--- NOTE | 2025-01-28 04:39 | NUR ---
CHIEF YEOMAN SHIFT SUMMARY PATIENT ADMITTED FOR COPD EXACERBATION. ALERT AND ORIENTED X4. PATIENT HAVING HYPOTENSION AND FREQUENT SPIKES IN HEART RATE. TELE REPORTED SEVERAL MOMENTS OF SVT THIS SHIFT, ALTHOUGH PATIENT IS ASYMPTOMATIC FOR ANY CARDIAC SYMPTOMS. PHYSICIAN WAS CALLED AND ORDERED METOPROLOL FOR SVT AND HYPERTENSION OF 146/131. BLOOD PRESSURE WAS RETAKEN AND BLOOD PRESSURE WAS 110/63 AND METOPROLOL WAS HELD. PURE WICK IN PLACE DRAINING DARK DANIELITO URINE. PATIENT RESTING QUIETLY INTERMITTENLY WITH FREQUENT INTERUPTIONS DUE TO BLOOD PRESSURE AND HEART RATE. PATIENT CONTUNUE TO BE ON OXYGEN 4L PER MINUTE VIA NASAL CANNULA. BED RAILS UP X2. BED IN LOWEST POSITION FOR SAFETY. WILL CONTINUE TO MONITOR.
--- NOTE | 2025-01-28 04:58 | NUR ---
NURSE STUDENT PRECEPTOR NOTE I HAVE WORKED ALONG SIDE OF AND WITH STUDENT AND READ AND AGREE WITH HER DOCUMENTATION
[2025-01-28 07:39] VITALS: BP 124/75
[2025-01-28 16:03] VITALS: BP 124/58
--- NOTE | 2025-01-28 17:22 | NUR ---
SHIFT SUMMARY NO ACUTE CHANGES. PT A/Ox4, ABLE TO MAKE NEEDS KOWN AND USES CALL LIGHT APPROPRIATELY. PT PROVIDED TYLENOL FOR JOINT PAIN X1 TODAY. REMAINS ON 4 L/MIN VIA NC. ON CONTINUOUS PULSE OX SATING 87-92%. PT DROPS 87% AND BELOW WITH EXERTION INCLUDING TALKING. UP TO CHAIR TODAY WITH 1 PERSON ASSIST AND FWW. BREATHING TX PROVIEDED PER EMAR. PUREWICK IN PLACE - CHANGED ON NOC SHIFT. PT CURRENTLY RESTING IN BED WITH BED IN LOWEST POSITION AND CALL LIGHT WITHIN REACH.
[2025-01-28] MEDS ORDERED: Budesonide 0.5 MG/2 ML RESP INH SCH (19:00)
[2025-01-28] MEDS ORDERED: GuaiFENesin 600 MG TabCR PO SCH (19:00)
[2025-01-28 20:46] VITALS: BP 111/71
[2025-01-28] MEDS ORDERED: Saline Nasal Spray 45 ML SCH (22:00)
--- NOTE | 2025-01-28 22:59 | NUR ---
PER TELEMETRY, PT HAD 17 SECOND RUN OF VTACH. PT WAS ASYMPTOMATIC, REPORTING NO CHEST PAIN OR PRESSURE. REPORTED RESULT TO HOSPITALIST.
[2025-01-29 00:56] VITALS: BP 101/48
[2025-01-29 04:33] VITALS: BP 129/92
--- NOTE | 2025-01-29 05:58 | NUR ---
SHIFT SUMMARY PT HAS BEEN RESTING IN BED OVERNIGHT. PT HAS BEEN AOX4, CALM AND COOPERATIVE. PT HAS BEEN ON 4LNC, SATURATING IN HIGH 80S- LOW 90S. PT HAS HAD COUGH AND WHEEZING OVERNIGHT. PT HAS BEEN IN BED OVERNIGHT, ATTACHED TO WICKING SYSTEM. PT HAS HAD NO COMPLAINTS OVERNIGHT. NO ACUTE EVENTS OVERNIGHT.
[2025-01-29 06:43] LABS: Bun/Creatinine Ratio 26.2 (12.0-20.0); Calcium, Blood 8.8 mg/dL (8.5-10.1); Creatinine, Blood 1.03 mg/dL (0.60-1.20); Potassium, Blood 4.3 mmol/L (3.5-5.5)
[2025-01-29 07:24] VITALS: BP 112/76
[2025-01-29 10:47] VITALS: BP 112/79
[2025-01-29] MEDS ORDERED: dilTIAZem HCL 120 MG CAP.CD PO SCH (11:00)
[2025-01-29] MEDS ORDERED: Acetaminophen650 M1 PO (11:05)
[2025-01-29] MEDS ORDERED: AZIT250 PO (11:08)
[2025-01-29] MEDS ORDERED: FINA5 PO (11:11)
[2025-01-29] MEDS ORDERED: PEPCID20 MG PO (11:16)
[2025-01-29] MEDS ORDERED: B-12500 MC2 PO (11:16)
[2025-01-29] MEDS ORDERED: NITR.4SL SL (11:17)
[2025-01-29] MEDS ORDERED: MYRBETRIQ25 MG PO (11:19)
[2025-01-29 11:28] LABS: CORONAVIRUS COVID-19 AG Negative (NEGATIVE)
--- NOTE | 2025-01-29 12:12 | NUR ---
RN PROVIDED REPORT VIA PHONE CALL TO ROMANA GIRON @ [facility] PRIOR TO PT TRANSFERRING.
[2025-01-29] MEDS ORDERED: BUDESONIDE0.5 MG/2 M INH (13:04)
[2025-01-29] MEDS ORDERED: IPRAT-ALBUT 0.5-3 ML INH (13:07)
[2025-01-29] MEDS ORDERED: DOCU100 PO (13:07)
[2025-01-29] MEDS ORDERED: DILTIAZEM 24HR180 M4 PO (13:14)
[2025-01-29] MEDS ORDERED: NASAL SPRAY88 ML (13:17)
--- NOTE | 2025-01-29 14:07 | NUR ---
PT DISCHARGED TO [facility] FROM [facility] 1405 ON 01/29/25. IV REMOVED PRIOR BY CNA2 IN TRAINING, SITE APPEARED WNL AND DRESSING CLEAN UPON DISCHARGE. DISCHARGE PACKET PROVIDED TO RELATIONSHIP COUNSELOR. MED REC COMPLETED. 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 REPORT CALLED INTO [facility] AT THE [facility] PRIOR TO DISCHARGE.
== END 2025-01-29 14:06 | DRG 189 ==
LOC: ER 15:57 → ERHOLD 15:58 → MEDS 15:58
PROVIDERS: Internal Medicine; Student in an Organized Health Care Education/Training Program; ADMIT Internal Medicine
DX: J96.21 Acute and chronic respiratory failure with hypoxia (principal); J44.1 Chronic obstructive pulmonary disease with (acute) exacerbation; I50.32 Chronic diastolic (congestive) heart failure; I47.29 Other ventricular tachycardia; Z66 Do not resuscitate; K44.9 Diaphragmatic hernia without obstruction or gangrene; I48.0 Paroxysmal atrial fibrillation; I11.0 Hypertensive heart disease with heart failure; N40.0 Benign prostatic hyperplasia without lower urinary tract symptoms; E78.5 Hyperlipidemia, unspecified; K21.9 Gastro-esophageal reflux disease without esophagitis; D69.6 Thrombocytopenia, unspecified; I49.3 Ventricular premature depolarization; Z99.81 Dependence on supplemental oxygen; Z87.891 Personal history of nicotine dependence; Z79.899 Other long term (current) drug therapy; Z98.890 Other specified postprocedural states; Z79.51 Long term (current) use of inhaled steroids; Z79.82 Long term (current) use of aspirin; Z79.2 Long term (current) use of antibiotics
CPT/HCPCS: 0202U; 36415; 80048; 80053; 83605; 83735; 83880; 84145; 85025; 87426-QW; 94640; 94664; 94760; 94762; 96365; 96366; 96375; 97110; 97112; 97116; 97161; 97165; 97530; 99285-25; A9270; G0378; J0696; J2919; J7512

== ENCOUNTER 2025-03-24 08:29 | Inpatient (IN) | payer OTHER ==
[2025-03-24] VITALS (7 sets, daily range): BP systolic 105–140; BP diastolic 70–119
[~2025-03-24] VITALS: Ht 175.3 cm; Wt 118.5 kg
[~2025-03-24 08:29] MED LIST changes: +AZIT250 PO; +Acetaminophen650 M1 PO; +B-12500 MC2 PO; +BUDESONIDE0.5 MG/2 M INH; +DILTIAZEM 24HR180 M4 PO; +DOCU100 PO; +FINA5 PO; +IPRAT-ALBUT 0.5-3 ML INH; +MYRBETRIQ25 MG PO; +NASAL SPRAY88 ML; +NITR.4SL SL; +PEPCID20 MG PO
[2025-03-24] MEDS ORDERED: Ipratropium/Albuterol SulF 2.5-0.5MG/3 ML Amp INH ONE (10:00)
[2025-03-24] MEDS ORDERED: Albuterol 2.5 MG/3 ML VIAL INH SCH ×2 (10:00→13:05)
[2025-03-24] MEDS ORDERED: Methyl Salicylate/Menth/Camph 57 GM TUBE TOP ONE (10:05)
[2025-03-24] MEDS ORDERED: Ketorolac Tromethamine 30mg Vial IV ONE (11:50)
[2025-03-24] MEDS ORDERED: Morphine Sulfate 4 MG/1 ML Injection IV ONE ×2 (11:55→13:05)
[2025-03-24 13:28] LABS: pH Blood Venous 7.35 (7.34-7.37)
[2025-03-24 13:29] LABS: Hematocrit 35.0 % (37.0-53.0); Hemoglobin 11.2 g/dL (13.5-17.5); Mean Corpuscular HGB Conc 32.0 g/dL (31.5-36.5); Mean Corpuscular Volume 100 fL (80-100); NRBC ABSOLUTE 0.00 K/mm3 (0.00-0.02); NRBC Auto 0.0 /100 WBC (0.0-0.2); Platelet Count 83 K/mm3 (150-400); RDW Coefficient Variation 13.7 % (11.7-14.2); RDW Standard Deviation 50.1 fL (35.1-46.3)
[2025-03-24 13:48] LABS: Alanine Aminotransfer (ALT/SGP 19.0 U/L (12-78); Albumin, Blood 3.3 g/dL (3.4-5.0); Albumin/Globulin Ratio 1.2 (0.8-1.8); Anion Gap 9.0 mmol/L (3-11); Aspartate Aminotrans (AST/SGOT 21.0 U/L (12-37); Bilirubin, Total 0.8 mg/dL (0.1-1.0); Blood Urea Nitrogen 19.0 mg/dL (8-24); CO2, Blood 26.0 mmol/L (21-32); Calcium, Blood 8.6 mg/dL (8.5-10.1); Chloride, Blood 107.0 mmol/L (98-108); Creatinine, Blood 1.19 mg/dL (0.60-1.20); Globulin, Blood 2.7 g/dL (2.2-4.0); Glucose, Blood 110.0 mg/dL (70-99); Potassium, Blood 4.0 mmol/L (3.5-5.5); Sodium, Blood 138.0 mmol/L (136-145); Total Protein, Blood 6.0 g/dL (6.4-8.2)
[2025-03-24] MEDS ORDERED: FentaNYL Citrate 50 MCG/ML 2 ML Injection IV PRN (13:55)
[2025-03-24] MEDS ORDERED: Ipratropium/Albuterol SulF 2.5-0.5MG/3 ML Amp INH SCH (13:55)
[2025-03-24] MEDS ORDERED: Albuterol 2.5 MG/3 ML VIAL INH PRN (13:55)
[2025-03-24] MEDS ORDERED: OxyCODONE 5 mg/Acetamin 325 mg TABLET PO PRN (13:55)
[2025-03-24 14:27] LABS: BAND PERCENT MAN 3 % (0-8); BASOPHILS ABSOLUTE MAN 0.00 K/mm3 (0.00-0.23); BASOPHILS PERCENT MAN 0 % (0-2); EOSINOPHILS ABSOLUTE MAN 0.00 K/mm3 (0.00-0.68); EOSINOPHILS PERCENT MAN 0 % (0-6); LYMPHOCYTES ABSOLUTE MAN 1.40 K/mm3 (0.84-5.20); LYMPHOCYTES PERCENT MAN 12 % (21-46); MONOCYTES ABSOLUTE MAN 3.50 K/mm3 (0.16-1.47); MONOCYTES PERCENT MAN 30 % (4-13); MYELOCYTE ABSOLUTE MAN 0.46 K/mm3 (0.00-0.00); MYELOCYTE PERCENT MAN 4 % (0-0); NEUTROPHILS ABSOLUTE MAN 6.30 K/mm3 (1.96-9.15); SEG NEUTROPHILS PERCENT MAN 51 % (41-73)
[2025-03-24] MEDS ORDERED: Polyethylene Glycol 3350 17 gm PO PRN (15:45)
[2025-03-24] MEDS ORDERED: Mometasone Furoate Inhaler 220 mcg 14 ACT INH SCH (16:00)
[2025-03-24] MEDS ORDERED: Budesonide 0.5 MG/2 ML RESP INH SCH (16:00)
[2025-03-24] MEDS ORDERED: Dextran/Hypromellose/Glycerin 15 DROP/ML BTL BOTHEYES SCH (17:00)
[2025-03-24] MEDS ORDERED: Loratadine10 MG PO (18:15)
[2025-03-24] MEDS ORDERED: Flonase 0.05% N16 GM (18:17)
[2025-03-24] MEDS ORDERED: HYDROCORTISONE30 GM TOP (18:24)
[2025-03-24] MEDS ORDERED: ASPIR 8181 M1 PO (18:29)
--- NOTE | 2025-03-24 18:49 | NUR ---
EOS: ONLY CHANGES FROM ADMISSION ASSESSMENT IS THAT THE PATIENT HAS BEEN HAVING MANY PVC'S AND OVERALL ECTOPY NOTED, WHICH HE HAD LAST HOSPITAL STAY. DENIES CHEST PAIN/PRESSURE BUT OBVIOUS SOB. INCREASED O2 TO 11 L HI FLOW NC, PATIENT WITH MUCH PALLOR. ALERT AND ORIENTED, BUT VERY PRAIRIE BAND. SEE ADMISSION ASSESSMENT FOR FURTHER
[2025-03-24] MEDS ORDERED: Lactobacil 2-S.Thermo-Bifido 1 1 Cap PO SCH (21:00)
[2025-03-25 04:31] LABS: Hematocrit 36.1 % (37.0-53.0); Hemoglobin 11.6 g/dL (13.5-17.5); Mean Corpuscular HGB Conc 32.1 g/dL (31.5-36.5); Mean Corpuscular Volume 101 fL (80-100); NRBC ABSOLUTE 0.00 K/mm3 (0.00-0.02); NRBC Auto 0.0 /100 WBC (0.0-0.2); Platelet Count 91 K/mm3 (150-400); RDW Coefficient Variation 13.9 % (11.7-14.2); RDW Standard Deviation 50.7 fL (35.1-46.3)
[2025-03-25 04:50] LABS: Anion Gap 10.0 mmol/L (3-11); Blood Urea Nitrogen 25.0 mg/dL (8-24); CO2, Blood 23.0 mmol/L (21-32); Calcium, Blood 8.4 mg/dL (8.5-10.1); Chloride, Blood 107.0 mmol/L (98-108); Creatinine, Blood 1.26 mg/dL (0.60-1.20); Glucose, Blood 193.0 mg/dL (70-99); Potassium, Blood 4.1 mmol/L (3.5-5.5); Sodium, Blood 136.0 mmol/L (136-145)
[2025-03-25 04:59] VITALS: BP 129/85
--- NOTE | 2025-03-25 06:29 | NUR ---
SHIFT SUMMARY. PATIENT IS A&OX4, CALLS APPROPRIATELY AND IS ABLE TO MAKE HIS NEEDS KNOWN. PATIENT REPORTS SOME PAIN THIS SHIFT MEDICATED PER ORDERS X1. PATIENT STARTED SHIFT ON 11LPM VIA HIGH SLOW HUMIDIFIED AIR BUT STILL EXPERIENCING SOB-RT CALLED AND TO PATIENTS ROOM FOR BREATHING TREATMENT-RT SWITCHED PATIENT FROM HUMIDIFIED HIGH FLOW OXYGEN TO AIRVO AT 55LPM AND 55% SATTING >90%. PATIENT IS PLEASANT AND RESTED OFF AND ON T/O NIGHT, POWERGLIDE PLACED BY LIONEL RN LEADER. PATIENT IS BEDREST AT THIS TIME RELATED TO RECENT FALL AT HOME PIOR TO ADMISSION AND IS CURRENTLY BED REST-BE ALARM ON FOR SAFTEY. PATIENT TAKES MEDS WHOLE WITH WATER W/O DIFFICULTY. PATIENT PROVIDED WITH INCENTIVE SPIROMETER. BED IS LOCKED IN THE LOWEST POSITION IH CALL LIGHT IN REACH, CARE IS ONGOING,
[2025-03-25 08:15] VITALS: BP 125/81
[2025-03-25] MEDS ORDERED: Diltiazem HCl 180 MG Cap.CD PO SCH (09:00)
[2025-03-25] MEDS ORDERED: Polyethylene Glycol 3350 17 gm PO SCH (09:00)
[2025-03-25] MEDS ORDERED: Cholecalciferol 1000 Unit Tablet (=25MCG) PO SCH (09:00)
[2025-03-25] MEDS ORDERED: Lidocaine 4% 1 Patch TOP SCH (09:00)
[2025-03-25 11:15] VITALS: BP 132/87
[2025-03-25 16:31] VITALS: BP 105/89
--- NOTE | 2025-03-25 18:41 | NUR ---
EOS: PATIENT IS NOW ON A FLUID RESTRICTION, 1.5L TOTAL. PATIENT EDUCATED AND AWARE. VERY ANXIOUS AND STRESSED IN BED, IMPROVED AFTER RECIEVING PAIN MEDCITION HE IS STOIC. RR UP TO THE 30'S WHEN HE STARTED COUGHING, REALLY UNABLE TO TITRATE OXYGEN STILL REMAINS ON 45L AT 50%. BLOOD PRESSURE STABLE FOR THIS RN. PATIENT APPEARS SICKLY. NOTIFIED OF RESPIRATORY DISTRESS AT TIMES, NO NEW ORDERS. PLAN OF CARE CONTINUES.
[2025-03-25 19:23] VITALS: BP 101/58
[2025-03-26 00:09] VITALS: BP 107/94
[2025-03-26 03:34] VITALS: BP 111/66
[2025-03-26 05:58] LABS: pH Blood Arterial 7.43 (7.35-7.45)
--- NOTE | 2025-03-26 06:10 | NUR ---
SHIFT SUMMARY: PT A&OX4 CALM AND COOPERATIVE. OCCASIONAL RUNS OF SVT THROUGHOUT SHIFT. PT REMAINED ASYMPTOMATIC DURING RUNS. LONGEST EPISODE BEING 3 MINUTES. EKG PERFORMED AND RECORDED IN CHART. PT MAINTAINED >90% ON 40L @ 54% ON AIRVO. PT C/O SHOULDER AND BACK PAIN AFTER TURNING IN BED. MEDICATED PER EMAR AND HEAT PAD APPLIED TO BACK. PT TOLERATING SOFT BITE SIZE DIET. BED IS LOW AND LOCKED. CALL LIGHT IS WITHIN REACH AND PT CALLS APPROPRIATELY. WILL CONTINUE PLAN OF CARE TILL REPORT GIVEN TO DAY NURSE.
[2025-03-26 06:39] LABS: Albumin, Blood 3.4 g/dL (3.4-5.0); Anion Gap 9 mmol/L (3-11); Blood Urea Nitrogen 34 mg/dL (8-24); CO2, Blood 25 mmol/L (21-32); Calcium, Blood 8.6 mg/dL (8.5-10.1); Chloride, Blood 107 mmol/L (98-108); Creatinine, Blood 1.34 mg/dL (0.60-1.20); Glucose, Blood 173 mg/dL (70-99); Magnesium, Blood 2.5 mg/dL (1.6-2.4); Phosphorus, Blood 3.3 mg/dL (2.5-4.9); Potassium, Blood 4.3 mmol/L (3.5-5.5); Sodium, Blood 137 mmol/L (136-145)
[2025-03-26 07:43] VITALS: BP 111/98
[2025-03-26] MEDS ORDERED: Fluticasone 0.05% Nasal Spray SCH (09:00)
[2025-03-26 12:04] VITALS: BP 124/73
[2025-03-26] MEDS ORDERED: Diltiazem HCl 5 MG / ML 5ML Vial IV STA (15:31)
--- NOTE | 2025-03-26 18:30 | NUR ---
EOS: PATIENT IS ALERT AND ORIENTED X 4 COOPERATIVE PLEASANT BUT EXTREMELY ANXIOUS. DID IMPROVE MOBILITY EMERY, HOWEVER, WHEN RETURNING FROM BEDSIDE COMMODE CONVERTED FROM HIS SR PVC'S VTACH, SVT TO AFIB RVR, WHICH FIRST APPEARED TO SVT, ATTEMPTED TO HAVE PATIENT BLOW INTO SYRINGE WHICH CAUSED HIS HR TO IMPROVE TO LOW TEENS 120'S INSTEAD OF 140'S TO 150'S SPOKE WITH DR. MENON AND MELINA 20mg PUSH ORDRED, GIVEN AND PATIETN CONVERTED BACK TO SR APPROXIMATELY 30 MINUTES LATER. DENIES CHEST PAIN PRESSURE OR SOB. IMPROVED O2 DEMAND TO 40L AT 35% ON AIRVO. PATIENT TODAY APPEARS TO BE IMPROVING THAN PREVIOUS SHIFT. BLE EDEMA SLIGHTLY IMPROVED. NO OTHER CONCERNS NOTED FROM THIS RN.
[2025-03-26 19:32] VITALS: BP 136/84
[2025-03-26 23:23] VITALS: BP 128/70
[2025-03-27] VITALS (7 sets, daily range): BP systolic 92–142; BP diastolic 58–94
[2025-03-27 03:46] LABS: Hematocrit 35.5 % (37.0-53.0); Hemoglobin 11.4 g/dL (13.5-17.5); Mean Corpuscular HGB Conc 32.1 g/dL (31.5-36.5); Mean Corpuscular Volume 99 fL (80-100); NRBC ABSOLUTE 0.00 K/mm3 (0.00-0.02); NRBC Auto 0.0 /100 WBC (0.0-0.2); Platelet Count 95 K/mm3 (150-400); RDW Coefficient Variation 13.9 % (11.7-14.2); RDW Standard Deviation 51.0 fL (35.1-46.3)
[2025-03-27 04:03] LABS: BAND PERCENT MAN 3 % (0-8); BASOPHILS ABSOLUTE MAN 0.00 K/mm3 (0.00-0.23); BASOPHILS PERCENT MAN 0 % (0-2); EOSINOPHILS ABSOLUTE MAN 0.00 K/mm3 (0.00-0.68); EOSINOPHILS PERCENT MAN 0 % (0-6); LYMPHOCYTES ABSOLUTE MAN 0.99 K/mm3 (0.84-5.20); LYMPHOCYTES PERCENT MAN 12 % (21-46); MONOCYTES ABSOLUTE MAN 0.91 K/mm3 (0.16-1.47); MONOCYTES PERCENT MAN 11 % (4-13); MYELOCYTE ABSOLUTE MAN 0.16 K/mm3 (0.00-0.00); MYELOCYTE PERCENT MAN 2 % (0-0); NEUTROPHILS ABSOLUTE MAN 6.24 K/mm3 (1.96-9.15); SEG NEUTROPHILS PERCENT MAN 72 % (41-73)
[2025-03-27 04:13] LABS: Alanine Aminotransfer (ALT/SGP 23.0 U/L (12-78); Albumin, Blood 3.4 g/dL (3.4-5.0); Albumin/Globulin Ratio 1.2 (0.8-1.8); Anion Gap 9.0 mmol/L (3-11); Aspartate Aminotrans (AST/SGOT 17.0 U/L (12-37); Bilirubin, Total 0.6 mg/dL (0.1-1.0); Blood Urea Nitrogen 42.0 mg/dL (8-24); CO2, Blood 26.0 mmol/L (21-32); Calcium, Blood 8.4 mg/dL (8.5-10.1); Chloride, Blood 106.0 mmol/L (98-108); Creatinine, Blood 1.46 mg/dL (0.60-1.20); Globulin, Blood 2.8 g/dL (2.2-4.0); Glucose, Blood 171.0 mg/dL (70-99); Potassium, Blood 4.1 mmol/L (3.5-5.5); Sodium, Blood 137.0 mmol/L (136-145); Total Protein, Blood 6.2 g/dL (6.4-8.2)
--- NOTE | 2025-03-27 06:20 | NUR ---
SHIFT SUMMARY: PT A&OX4 CALM AND COOPERATIVE. MAINTAINED >92% ON 40L @ 45% AIRVO. HR 90S-110S. PT C/O OF BACK PAIN WHILE TURNING IN BED. MEDICATED PER EMAR. NO BM DURING SHIFT. WICKING SYSTEM IN PLACE. ADEQUATE OUTPUT. URINE IS DARK YELLOW. TOLERATING SOFT BITE SIZED DIET. FOLLOWED FLUID RESTRICTION. NO RUNS OF SVT DURING SHIFT. BED IS LOW AND LOCKED. BED ALARM ON. CALL LIGHT IS WITHIN REACH AND PT CALLS APPROPRIATELY. WILL CONTINUE PLAN OF CARE TILL REPORT GIVEN TO DAY NURSE.
--- NOTE | 2025-03-27 17:45 | NUR ---
END OF SHIFT SUMMARY THE PT IS A&OX4, 2P ASSIST AND IS ABLE TO MAKE HIS NEEDS KNOWN. HE HAS BEEN IN THE RECLINER MAJORITY OF THE SHIFT. HE WORKED WITH PT THIS MORNING AND REQUIRED AND INCREASE IN OXYGEN: FROM AIRVO 40L @ 45 % TO 40L @ 60%. THE PT HAS BEEN TITRAITED BACK DOWN TO THE 40L @ 45% W/ SP02 >90%. THE PT HAS CHRONIC SOB, BUT DENIED ANY INCREASED SOB FROM HIS BASELINE. ON TELE HE HAS BEEN SR W/ PVC'S, PAC'S 90'S-100'S. HE HAD A SMALL SPURT OF SVT THIS AM, RESOLVED WITHIN A FEW SECONDS ON ITS OWN. HIS BP HAS BEEN STABLE. DR. MENON INCREASED THE PT'S DIURETICS, AND HE HAS BEEN VOIDING INTO A MALE WICKING SYSTEM. HE REMAINS ON A FLUID RESTRICTION OF 1,500CC AND HAS HAD 995CC'S DURING THIS SHIFT. NO ACUTE EVENTS THIS SHIFT. SEE NOTES FOR ANY UPDATES.
[2025-03-28] VITALS (9 sets, daily range): BP systolic 107–135; BP diastolic 59–89
[2025-03-28 04:09] LABS: Albumin, Blood 3.3 g/dL (3.4-5.0); Anion Gap 9 mmol/L (3-11); Blood Urea Nitrogen 45 mg/dL (8-24); CO2, Blood 28 mmol/L (21-32); Calcium, Blood 8.2 mg/dL (8.5-10.1); Chloride, Blood 105 mmol/L (98-108); Creatinine, Blood 1.44 mg/dL (0.60-1.20); Glucose, Blood 179 mg/dL (70-99); Magnesium, Blood 2.5 mg/dL (1.6-2.4); Phosphorus, Blood 3.9 mg/dL (2.5-4.9); Potassium, Blood 3.8 mmol/L (3.5-5.5); Sodium, Blood 138 mmol/L (136-145)
--- NOTE | 2025-03-28 05:27 | NUR ---
SHIFT SUMMARY PATIENT ALERT AND ORIENTED X4. DENIED HAVING ANY PAIN OR SHORTNESS OF BREATH BEYOND HIS BASELINE.PATIENT CONTINUES ON THE AIRVO ON 40 LITERS AT 45% FIO2. PATIENT HAD ABOUT A 3 MINUTE RUN OF VTACH THAT WAS SELF LIMITING. WILL CONTINUE TO MONITOR. CALL LIGHT WITHIN REACH.
--- NOTE | 2025-03-28 10:52 | NUR ---
THIS RN CALLED DR. MENON ABOUT THE PT CONVERTING BACK INTO AFIB THIS LATE MORNING. THIS RN ASKED IF WE ARE GOING TO MAKE ANY ADJUSTMENTS TO THE PT'S LONG ACTING CARDIZEM PO OR IF SHE WANTS THIS RN TO GIVE THE PT THE 30 MG SHORT ACTING CARDIZEM . DR. MENON WAS NOTIFED THAT THE PT HAD ABOUT A 3MINUTE RUN OF AFIB IN THE NIGHT WELL. DR. MENON WANTED THE SHORT ACTING 30MG GIVEN FOR NOW. SEE NOTES FOR ANY UPDATES.
[2025-03-28] MEDS ORDERED: Diltiazem HCl 5 MG / ML 5ML Vial IV STA (14:34)
--- NOTE | 2025-03-28 18:20 | NUR ---
END OF SHIFT SUMMARY THE PT HAS BEEN A&OX4, INUPIAT (HEARING AIDS NOT IN HIS DISPOSITION), AND THE PT HAS BEEN MORE WITHDRAWN AND EMOTIONAL TODAY. HE IS A 2P W/ FWW AND GB FOR TRANSFERING. HE WAS IN THE CHAIR FOR ABOUT HALF OF THE SHIFT. THE PT CONVERTED FROM SR TO AFIB IN THE MORNING (SEE PREVIOUS NOTE) AND AT 1437 THE PT CONVERTED BACK TO SR. DR. MENON AWARE. THE PT'S EXTENDED RELEASE CARDIZEM HAS BEEN INCREASED STARTING 7/4 AM. THE PT WAS TITRAITED ON THE AIRVO FROM 40L @ 45% TO 40L @ 40% AT THE START OF THIS SHIFT. THIS AFTERNOON, THIS RN TRIALED THE PT ON 6L HFNC AND HE HAS BEEN W/ SP02 >93%. AND PT REMAINS WITH UNLABORED BREATHING AND DENIES ANY INCREASED SOB. A MALE WICKING SYSETK REMAINS IN PLACE. HE HAS HAD 960CC'S OF HIS 1500CC FLUID RESTRICTION THIS SHIFT. BED IN LOW, CALL LIGHT IN REACH, BED ALARM INTACT. SEE NOTES FOR ANY UPDATES.
[2025-03-29] VITALS (7 sets, daily range): BP systolic 113–153; BP diastolic 81–114
[2025-03-29] MEDS ORDERED: Diltiazem HCl 5 MG / ML 5ML Vial IV ONE (04:55)
--- NOTE | 2025-03-29 04:57 | NUR ---
PHYSICIAN COMMUNICATION PATIENT'S HEART RATE IN THE 140'S ON TELE, WAS MEDICATED PER EMAR WITH PRN ORAL CARDIZEM, INEFFECTIVE. EKG OBTAINED AND SPOKE WITH DR ASH REGARDING THE HEART RATE AND SHOWED HIM THE EKG. PATIENT ASYMPTOMATIC. MD CAME TO BEDSIDE AND HAD PATIENT ATTEMPT VAGAL MANEUVER, ALSO INEFFECTIVE.
--- NOTE | 2025-03-29 06:25 | NUR ---
SHIFT SUMMARY PATIENT ALERT AND ORIENTED X4. MEDICATED PER EMAR FOR PAIN. PATIENT'S HEART NOW BACK IN NORMAL SINUS RHYTHM IN THE 80'S. CONTINUES ON 6 LITERS O2 VIA NC. WILL CONTINUE TO MONITOR. CALL LIGHT WITHIN REACH.
--- NOTE | 2025-03-29 08:28 | NUR ---
RT TREATMENT JUST DONE, PATIENT ATE BREAKFAST, HAVING A BED BATH NOW, HTN SBP 153, WILL WAIT TELL BED BATH DONE AND CHECK AGAIN
[2025-03-29] MEDS ORDERED: Diltiazem HCl 300 MG Cap.CD PO SCH (09:00)
--- NOTE | 2025-03-29 11:01 | NUR ---
DR CADET ROUNDED ON PATIENT, PRN CARDIZEM GIVEN, WAITING FOR DESIRED EFFECT. PATIENTS FAMILY VISITED, PLEASANT TO CARE, CALL LIGHT WITH IN REACH
--- NOTE | 2025-03-29 18:39 | NUR ---
NO ACUTE CHANGES, DAUGHTER VISITED TODAY, MEDICATIONS WHOLE WITH APPLESAUCE, PURWIK IN PLACES, AELRT AND ORIENTED X3, EASILY ANXIUOS WITH TALKING AND DESATS AT THAT TIMES. DESATS TO 80% RECOVERS TO >90% WITH BREATHING QUIES. CALL LIGHT WITH IN REACH, CALL LIGHT WITH IN REACH
[2025-03-30 03:11] VITALS: BP 151/76
[2025-03-30 04:17] LABS: BASOPHILS ABSOLUTE AUTO 0.07 K/mm3 (0.00-0.23); BASOPHILS PERCENT AUTO 1 % (0-2); EOSINOPHILS ABSOLUTE AUTO 0.04 K/mm3 (0.00-0.68); EOSINOPHILS PERCENT AUTO 0 % (0-6); Hematocrit 37.5 % (37.0-53.0); Hemoglobin 12.3 g/dL (13.5-17.5); IMMATURE GRAN ABSOLUTE AUTO 0.91 K/mm3 (0.00-0.10); IMMATURE GRAN PERCENT AUTO 8 % (0-1); LYMPHOCYTES ABSOLUTE AUTO 1.63 K/mm3 (0.84-5.20); LYMPHOCYTES PERCENT AUTO 15 % (21-46); MONOCYTES ABSOLUTE AUTO 2.00 K/mm3 (0.16-1.47); MONOCYTES PERCENT AUTO 18 % (4-13); Mean Corpuscular HGB Conc 32.8 g/dL (31.5-36.5); Mean Corpuscular Volume 98 fL (80-100); NEUTROPHILS ABSOLUTE AUTO 6.21 K/mm3 (1.96-9.15); NEUTROPHILS PERCENT AUTO 57 % (41-73); NRBC ABSOLUTE 0.00 K/mm3 (0.00-0.02); NRBC Auto 0.0 /100 WBC (0.0-0.2); Platelet Count 102 K/mm3 (150-400); RDW Coefficient Variation 13.3 % (11.7-14.2); RDW Standard Deviation 47.8 fL (35.1-46.3)
[2025-03-30 04:35] LABS: Anion Gap 11.0 mmol/L (3-11); Blood Urea Nitrogen 52.0 mg/dL (8-24); CO2, Blood 28.0 mmol/L (21-32); Calcium, Blood 8.3 mg/dL (8.5-10.1); Chloride, Blood 102.0 mmol/L (98-108); Creatinine, Blood 1.51 mg/dL (0.60-1.20); Glucose, Blood 153.0 mg/dL (70-99); Potassium, Blood 3.9 mmol/L (3.5-5.5); Sodium, Blood 137.0 mmol/L (136-145)
--- NOTE | 2025-03-30 06:48 | NUR ---
SHIFT SUMMARY PATIENT ALERT AND ORIENTED X4. MEDICATED PER EMAR FOR PAIN. WAS TITRATED FROM 6 TO 5 LITERS O2 VIA NC. VITAL SIGNS STABLE. NO ACUTE ISSUES NOTED OVERNIGHT. WILL CONTINUE TO MONITOR. CALL LIGHT WITHIN REACH.
[2025-03-30 07:24] VITALS: BP 124/71
--- NOTE | 2025-03-30 10:30 | NUR ---
ASSUMED CARE OF PT. PT FEELS WELL WITH SOME DISCOMFORT TO LEFT ARM AFTER PACEMAKER PLACED, MEDICATED PER NOV. DR MARIES IN TO SEE PT AND WILL POSSIBLY BE DISCHARGED.
--- NOTE | 2025-03-30 10:31 | NUR ---
WEBSITE DEVELOPER, INTEROGATED PACEDMAKE AND FOUND THAT LEAD WAS OFF, 0940 SO PT NOW DOWN HAVING REVISION,
[2025-03-30 12:38] VITALS: BP 116/86
--- NOTE | 2025-03-30 15:05 | NUR ---
ASSUMED CARE OF PT. PT A/O X 4 VERY PLEASENT AND COOPERATIVE WITH CARE. PT CURRENTLY UP IN CHAIR NO C/O PAIN NO DISTRESS. HEART RATE 110 O2 SAT 96 ON 5 L NC. PURWIC INTACT.
[2025-03-30 16:52] VITALS: BP 130/81
--- NOTE | 2025-03-30 18:45 | NUR ---
HEART RATE GREATER THAN 150, AFTER MORNING MEDICATIONS HEART RATE WOULD NOT GO DOWN SO PT TREATED WITH ADDITIONAL CARDIZEM. BP AND O2 REMAINED WNL AND PT STATED HE FELT GREAT. PHYSICAL THERAPY INTO SEE PT BUT BECAUSE HEART RATE ELEVATED HE WAS UNABLE TO PARTICIPATE. AFTER 1.5 HOUR HEART RATE WOULD STILL NOT SLOW SO DR CADET WAS NOTIFIED AND PT STARTED ON METOPROL.
--- NOTE | 2025-03-30 18:50 | NUR ---
1400 PT HEART RATE IN THE 90S AND HAS CONVERTED INTO SR WITH PVC. PT COMFORTABLE AND SLEEPING AT THE MOMENT VSS NO DISTRESS NOR C/O PAIN.
[2025-03-30 20:53] VITALS: BP 140/83
--- NOTE | 2025-03-30 22:35 | NUR ---
PHYSISIAN MED REQ PT C/O HEART BURN AND WANTS TUMS. NO PRN ON NOV. TAKES TUMS AT HOME. TO ORDER
[2025-03-31] VITALS (7 sets, daily range): BP systolic 19–141; BP diastolic 76–104
[2025-03-31 05:05] LABS: Hematocrit 36.3 % (37.0-53.0); Hemoglobin 11.9 g/dL (13.5-17.5); Mean Corpuscular HGB Conc 32.8 g/dL (31.5-36.5); Mean Corpuscular Volume 97 fL (80-100); NRBC ABSOLUTE 0.00 K/mm3 (0.00-0.02); NRBC Auto 0.0 /100 WBC (0.0-0.2); Platelet Count 101 K/mm3 (150-400); RDW Coefficient Variation 13.5 % (11.7-14.2); RDW Standard Deviation 48.3 fL (35.1-46.3)
[2025-03-31 05:36] LABS: Anion Gap 9.0 mmol/L (3-11); Blood Urea Nitrogen 52.0 mg/dL (8-24); CO2, Blood 30.0 mmol/L (21-32); Calcium, Blood 8.6 mg/dL (8.5-10.1); Chloride, Blood 104.0 mmol/L (98-108); Creatinine, Blood 1.39 mg/dL (0.60-1.20); Glucose, Blood 152.0 mg/dL (70-99); Potassium, Blood 3.7 mmol/L (3.5-5.5); Sodium, Blood 139.0 mmol/L (136-145)
[2025-03-31 05:38] LABS: BAND PERCENT MAN 3 % (0-8); BASOPHILS ABSOLUTE MAN 0.00 K/mm3 (0.00-0.23); BASOPHILS PERCENT MAN 0 % (0-2); EOSINOPHILS ABSOLUTE MAN 0.00 K/mm3 (0.00-0.68); EOSINOPHILS PERCENT MAN 0 % (0-6); LYMPHOCYTES ABSOLUTE MAN 1.56 K/mm3 (0.84-5.20); LYMPHOCYTES PERCENT MAN 11 % (21-46); MONOCYTES ABSOLUTE MAN 4.12 K/mm3 (0.16-1.47); MONOCYTES PERCENT MAN 29 % (4-13); NEUTROPHILS ABSOLUTE MAN 8.53 K/mm3 (1.96-9.15); SEG NEUTROPHILS PERCENT MAN 57 % (41-73)
--- NOTE | 2025-03-31 06:02 | NUR ---
RN SHIFT NOTE NO ACUTE EVENTS OVERNIGHT. PT BROUGHT ONE PERCOCET AT HOUR SLEEP FOR LOW BACK PAIN. BLE ELEVATED ON PILLOWS FOR EDEMA MANAGEMENT. VSS WITH 02 MAINTAINING SATS W 5 LITERS 02. HEART RATE NSR W P WAVES VISIBLE, BUT IRREGULAR W PVCS FREQ. PT DENIES CHEST PAIN OR SOB OR LIGHTHEADEDNESS. HEART RATE IN 90'S TO LOW 100'S. CALLED FOR RT TX FOR EXPIRATORY WHEEZING ON WAKING UP. PLAN FOR CONTINUED MONITORING OF O2 AND CARDIAC AND TREATMENT FOR COPD AND ACUTE ON CHRONIC HEART FX.
[2025-03-31] MEDS ORDERED: Ipratropium/Albuterol SulF 2.5-0.5MG/3 ML Amp INH SCH (10:45)
--- NOTE | 2025-03-31 16:35 | NUR ---
PT SUMMARY; PT TRANSITIONED TO MEDICAL STATUS NO TELE. PT CONTINUES TO DIURESE. PT NOW ON 4L OF O2 VIA NASAL CANNULA SATS KEP ABOVE 90%, HRR REMAINED AFIB RATE AT 70-90'S, SBP 120'S, AFEBRILE. PT HAS BEEN GETTING UP IN THE CHAIR FOR MEALS. PUREWICK IN PLACE NO ISSUES FOR THE SHIFT. PT ABLE TO MAKE NEEDS KNOWN, CALLS APPROPRIATELY. AWAITING FOR SNF PLACEMENT. NO OTHER ISSUES ENCOUNTERED WILL REPORT TO ONCOMING SHIFT
--- NOTE | 2025-03-31 19:31 | NUR ---
RN ASSUMPTION OF CARE BEDSIDE REPORT COMPLETED W ROMANA CASTRO. PT DENIES NEEDS AT THIS TIME. PLAN FOR BM TONIGHT WITH BEDSIDE COMMODE AND 2 PERSON ASSIST. RT ARRIVED TO GIVE PT A BREATHING TREATMENT. PT ON 4 LITERS NC AT THIS TIME. PLAN OF CARE ALSO DISCUSSED. PT STATES UNDERSTANDING.
--- NOTE | 2025-03-31 23:53 | NUR ---
PT TRANSFER FROM PCU PER BED TO RM 228.PT [place],A/O NO APPARENT DISTRESS. REPORTED THAT PLAN IS FOR [facility] 04/01.PT ON 4 L N/C.DENIES AND RESP DISTRESS,DENIES CP.MALE PUREWICK IN PLACE.PT REPORTED RECEIVED BOWEL CARE AND HOPING FOR RESULTS THIS SHIFT.
--- NOTE | 2025-03-31 23:53 | NUR ---
CHANGE OF CARE NOTE: PT MOVED TO SURGIVAL 228. REPORT GIVEN TO NEW NURSE, PT TRANSFERED W ALL BELONGINGS, MEDS AND RESETTLED IN NEW ROOM ON CONTINUED TELE AND O2 MONITORING ON 4 LITERS. PT STATES UNDERSTANDING OF MOVE. CHEMISTS LAURA GOING TO CALL FAMILY IN AM OF PT MOVE TO NEW ROOM.
[2025-04-01 03:41] VITALS: BP 135/89
--- NOTE | 2025-04-01 05:24 | NUR ---
PT IRRITABLE THIS AM.UPSET BY MOVE TO RM 228 FROM PCU. VERB HE FEELS LIKE HE WAS MOVED BECAUSE HE WAS GETTING WORSE.PT WAS SPEAKING WITH APPAREL MANUFACTURE INSTRUCTOR AND VERB HE FEELS UNREADY TO GO TO [place] SNF.APPAREL MANUFACTURE INSTRUCTOR FEELS LIKE PT DOESNT FULLY UNDERSTAND ILLNESS AND REASON FOR SNF AND DISCUSSED BENEFITS.PT STATED HIS "MIND" IS NOT READY FOR SNF AND FEELS HE IS NOT GETTING THE CARE HE DESIRES.
[2025-04-01 06:55] LABS: BASOPHILS ABSOLUTE AUTO 0.14 K/mm3 (0.00-0.23); BASOPHILS PERCENT AUTO 1 % (0-2); EOSINOPHILS ABSOLUTE AUTO 0.01 K/mm3 (0.00-0.68); EOSINOPHILS PERCENT AUTO 0 % (0-6); Hematocrit 38.0 % (37.0-53.0); Hemoglobin 12.4 g/dL (13.5-17.5); IMMATURE GRAN ABSOLUTE AUTO 1.89 K/mm3 (0.00-0.10); IMMATURE GRAN PERCENT AUTO 11 % (0-1); LYMPHOCYTES ABSOLUTE AUTO 2.92 K/mm3 (0.84-5.20); LYMPHOCYTES PERCENT AUTO 17 % (21-46); MONOCYTES ABSOLUTE AUTO 4.38 K/mm3 (0.16-1.47); MONOCYTES PERCENT AUTO 25 % (4-13); Mean Corpuscular HGB Conc 32.6 g/dL (31.5-36.5); Mean Corpuscular Volume 99 fL (80-100); NEUTROPHILS ABSOLUTE AUTO 8.10 K/mm3 (1.96-9.15); NEUTROPHILS PERCENT AUTO 47 % (41-73); NRBC ABSOLUTE 0.00 K/mm3 (0.00-0.02); NRBC Auto 0.0 /100 WBC (0.0-0.2); Platelet Count 99 K/mm3 (150-400); RDW Coefficient Variation 13.5 % (11.7-14.2); RDW Standard Deviation 48.5 fL (35.1-46.3)
[2025-04-01 07:11] LABS: Anion Gap 8.0 mmol/L (3-11); Blood Urea Nitrogen 55.0 mg/dL (8-24); CO2, Blood 30.0 mmol/L (21-32); Calcium, Blood 8.4 mg/dL (8.5-10.1); Chloride, Blood 103.0 mmol/L (98-108); Creatinine, Blood 1.39 mg/dL (0.60-1.20); Glucose, Blood 101.0 mg/dL (70-99); Potassium, Blood 3.8 mmol/L (3.5-5.5); Sodium, Blood 137.0 mmol/L (136-145)
[2025-04-01 07:27] VITALS: BP 121/73
--- NOTE | 2025-04-01 12:18 | NUR ---
TELE REMOVED. BL IV SITES DC'D INTACT. REPORT CALLED TO BREE/ROMANA MCKEON.
[2025-04-01 12:57] LABS: SARS-Cov-2 (COVID-19) PCR, MMC NEGATIVE (NEGATIVE)
--- NOTE | 2025-04-01 13:15 | NUR ---
PT DISCHARGED INTO [facility] TO [facility].
== END 2025-04-01 13:19 | DRG 291 ==
LOC: ER 08:29 → ERHOLD 13:50 → PCU 13:50 → SURS 03-31 23:58
PROVIDERS: Internal Medicine; Student in an Organized Health Care Education/Training Program; ADMIT Internal Medicine
PROC: 4A033R1 Measurement of Arterial Saturation, Peripheral, Percutaneous Approach (ICD-10-PCS; principal; 2025-03-26)
DX: I11.0 Hypertensive heart disease with heart failure (principal); I50.33 Acute on chronic diastolic (congestive) heart failure; J96.21 Acute and chronic respiratory failure with hypoxia; S22.080A Wedge compression fracture of T11-T12 vertebra, initial encounter for closed fracture; S32.010A Wedge compression fracture of first lumbar vertebra, initial encounter for closed fracture; J44.1 Chronic obstructive pulmonary disease with (acute) exacerbation; N17.9 Acute kidney failure, unspecified; D69.3 Immune thrombocytopenic purpura; I45.2 Bifascicular block; Z66 Do not resuscitate; Z99.81 Dependence on supplemental oxygen; Z99.3 Dependence on wheelchair; N40.0 Benign prostatic hyperplasia without lower urinary tract symptoms; I48.0 Paroxysmal atrial fibrillation; E78.5 Hyperlipidemia, unspecified; K21.9 Gastro-esophageal reflux disease without esophagitis; R54 Age-related physical debility; Z87.891 Personal history of nicotine dependence; Z79.899 Other long term (current) drug therapy; Z79.01 Long term (current) use of anticoagulants; Z79.51 Long term (current) use of inhaled steroids; W18.2XXA Fall in (into) shower or empty bathtub, initial encounter
CPT/HCPCS: 36415; 36600; 70450; 71045; 72100; 72125; 80048; 80053; 80069; 82803; 83735; 83880; 85025; 85027; 93005; 93010; 94640; 94664; 94762; 96374; 96375; 97110; 97162; 97165; 97530; 97535; 99285-25; A9270; C1751; J0456; J1885; J1938; J2270; J2919; J3010; J7050; J7512; U0002

== ENCOUNTER 2025-06-06 16:35 | Emergency (ER) | payer OTHER ==
[~2025-06-06] VITALS: Ht 175.3 cm; Wt 104.3 kg
[~2025-06-06 16:35] MED LIST changes: +ASPIR 8181 M1 PO; +Flonase 0.05% N16 GM; +HYDROCORTISONE30 GM TOP; +Loratadine10 MG PO
[2025-06-06 16:37] VITALS: BP 124/77
== END 2025-06-06 20:13 | disposition home or self-care (01) ==
LOC: ER 16:35
DX: S09.90XA Unspecified injury of head, initial encounter (principal); I11.0 Hypertensive heart disease with heart failure; I50.30 Unspecified diastolic (congestive) heart failure; E78.5 Hyperlipidemia, unspecified; J44.9 Chronic obstructive pulmonary disease, unspecified; Z79.51 Long term (current) use of inhaled steroids; Z79.82 Long term (current) use of aspirin; Z79.899 Other long term (current) drug therapy
CPT/HCPCS: 70450; 99284-25

== ENCOUNTER 2025-09-19 18:42 | Emergency (ER) | payer OTHER ==
[~2025-09-19] VITALS: Ht 175.3 cm; Wt 96.2 kg
[2025-09-19 19:34] LABS: Source, Urine Clean Catch
[2025-09-19 19:53] LABS: Color, Urine Amber (P-Yellow); Glucose Qualitative, Urine Neg (Neg); Ketones, Urine Neg (Neg); Leukocyte Esterase, Urine 2+ (Neg); Protein, Urine 4+ (Neg); Specific Gravity, Urine 1.025 (1.003-1.022); Urobilinogen, Urine 2+ (Normal)
[2025-09-19 20:01] LABS: Bilirubin, Urine 2+ (Neg)
[2025-09-19 20:02] LABS: Red Blood Cells, Urine TNTC /hpf (0-2); White Blood Cells, Urine 25-50 /hpf (0-5)
[2025-09-19] MEDS ORDERED: CEFP200 PO (20:24)
[2025-09-19 20:32] VITALS: BP 103/69
== END 2025-09-19 21:36 | disposition home or self-care (01) ==
LOC: ER 18:42
PROVIDERS: Emergency Medicine
DX: N39.0 Urinary tract infection, site not specified (principal); N32.89 Other specified disorders of bladder; Z79.899 Other long term (current) drug therapy; Z79.82 Long term (current) use of aspirin; I50.30 Unspecified diastolic (congestive) heart failure; I11.0 Hypertensive heart disease with heart failure; E78.5 Hyperlipidemia, unspecified
CPT/HCPCS: 81001; 87086; 87106; 99283; A9270